=== PATIENT | female | born 1945 | race Caucasian/White ===

== ENCOUNTER → 2020-01-18 11:09 | Outpatient (BNVA) | payer MEDICARE, OTHER, SELFPAY | PROVIDERS: Family Provider Family Medicine; PCP Family Medicine; Referring Provider Family Medicine; Visit Provider Internal Medicine Rheumatology | DX: M81.0 Age-related osteoporosis without current pathological fracture (principal); Z79.899 Other long term (current) drug therapy; I10 Essential (primary) hypertension | CPT/HCPCS: 36415; 80076; 82310; 82565; 83970; 84439; 84443; 85025; 99204 ==

== ENCOUNTER → 2020-01-18 13:29 | Outpatient (BNVA) | payer MEDICARE, OTHER, SELFPAY | PROVIDERS: Family Provider Family Medicine; PCP Family Medicine; Referring Provider Family Medicine; Visit Provider Internal Medicine Rheumatology | DX: Z79.899 Other long term (current) drug therapy (principal); M81.0 Age-related osteoporosis without current pathological fracture; I10 Essential (primary) hypertension | CPT/HCPCS: 85025 ==

== ENCOUNTER 2020-06-21 14:44 | Outpatient (CLI) | payer MEDICARE, OTHER, SELFPAY ==
--- NOTE | 2020-06-21 14:49 | MM_ITS ---
WS: [id number] BILATERAL SCREENING DIGITAL MAMMOGRAM WITH CAD HISTORY: SCREENING COMPARISON: 03/03/2019, 01/30/2018 Bilateral CC and MLO views submitted. Computer aided detection analyzed. Breast composition: The breasts are extremely dense, which lowers the sensitivity of mammography. No suspicious masses, microcalcifications or architectural distortion. Scattered asymmetries in each violette ast. Biopsy clip upper outer quadrant of the RIGHT breast. MM/[id number] IMPRESSION: BI-RADS: 2-Benign FOLLOW UP: 1 Year Follow-up
== END 2020-06-21 14:45 | disposition home or self-care (01) ==
LOC: RADSHAW 14:48
PROVIDERS: PCP Family Medicine; Visit Provider Family Medicine
DX: Z12.31 Encounter for screening mammogram for malignant neoplasm of breast (principal)
CPT/HCPCS: 77067

== ENCOUNTER → 2021-03-20 08:04 | Outpatient (BNVA) | payer MEDICARE, OTHER, SELFPAY | PROVIDERS: PCP Family Medicine; Visit Provider Urology | DX: N39.0 Urinary tract infection, site not specified (principal) | CPT/HCPCS: 81003 ==

== ENCOUNTER 2021-11-06 09:15 | Outpatient (CLI) | payer MEDICARE, OTHER, SELFPAY ==
--- NOTE | 2021-11-06 09:20 | MM_ITS ---
WS: [id number] BILATERAL DIGITAL SCREENING MAMMOGRAPHY WITH CAD CLINICAL INFORMATION: SCREENING HISTORY: Screening mammogram. No current complaints. COMPARISON: June 21, 2020 TECHNIQUE: Bilateral CC and MLO views. FINDINGS: The breasts are composed of heterogeneous fibroglandular density tissue, which can limit the detectio n of small underlying mass lesions. Stereotactic biopsy clip right breast. A few punctate calcificati ons. No suspicious mass, asymmetry, calcifications, or architectural distortion. No evidence of malig mau. MM/[place] [id number] IMPRESSION: BI-RADS: 2-Benign FOLLOW UP: 1 Year Follow-up Recommend return to annual screening mammography.
== END 2021-11-06 09:16 | disposition home or self-care (01) ==
LOC: RADSHAW 09:17
PROVIDERS: PCP Family Medicine; Visit Provider Family Medicine
DX: Z12.31 Encounter for screening mammogram for malignant neoplasm of breast (principal)
CPT/HCPCS: 77067

== ENCOUNTER → 2021-11-22 08:15 | Outpatient (BNVA) | payer MEDICARE, OTHER, SELFPAY | PROVIDERS: PCP Family Medicine; Visit Provider Family Medicine | DX: Z01.812 Encounter for preprocedural laboratory examination (principal); Z20.822 Contact with and (suspected) exposure to COVID-19 | CPT/HCPCS: 87635 ==

== ENCOUNTER 2021-11-28 11:05 | Outpatient (CLI) | payer MEDICARE, OTHER, SELFPAY ==
--- NOTE | 2021-11-28 13:39 | PFTS_ITS ---
Date of Study:11/28/21 Date of Dictation: MECHANICS: Forced vital capacity (FVC) is normal. Forced expiratory volume in one second (FEV1) is normal. FEV1/FVC is normal. FLOW VOLUME LOOP: Normal. LUNG VOLUMES: Total lung capacity (TLC) is normal. Residual volume (RV) is normal. DIFFUSING CAPACITY FOR CARBON MONOXIDE: Mildly reduced. INTERPRETATION: The prebronchodilator spirometry is normal. No postbronchodilator spirometry was performed. Lung volumes are normal. Gas exchange (DLCO) is mildly reduced. MTDD
== END 2021-11-28 11:06 | disposition home or self-care (01) ==
LOC: RT 11:07
PROVIDERS: PCP Family Medicine; Visit Provider Family Medicine
DX: R05.3 Chronic cough (principal)
CPT/HCPCS: 94010; 94726; 94729

== ENCOUNTER 2022-01-30 09:57 | Outpatient (CLI) | payer MEDICARE, OTHER, SELFPAY ==
--- NOTE | 2022-01-30 10:13 | XR_ITS ---
WS: [id number] SCREENING DEXA SCAN [facility] CLINICAL INFORMATION: OSTEOPOROSIS COMPARISON: FINDINGS: The L1-L4 bone mineral density measures 0.780 g/cm2. This corresponds to a T score score of -3.3 and Z score of -1.7. Left femoral neck bone mineral density measures 0.728 g/cm2. This corresponds to a T score of -2.2 an d Z score of -0.6. Right femoral neck bone mineral density measures 0.764 g/cm2. This corresponds to a T score -1.9of an d Z score of -0.3. Mean femoral neck bone mineral density measures 0.746 g/cm2. This corresponds to a T score of -2.1 an d Z score of -0.4. XR/XR DEXA axial skeleton* [id number] IMPRESSION: Osteoporosis lumbar spine. Osteopenia femoral necks. Patient's FRAX calculated 10 year probability for major osteoporotic fracture i s 27.7 % and osteoporotic hip fracture is 17.1%.
== END 2022-01-30 09:58 | disposition home or self-care (01) ==
LOC: RAD 10:03
PROVIDERS: PCP Family Medicine; Visit Provider Family Medicine
DX: M81.0 Age-related osteoporosis without current pathological fracture (principal); M85.88 Other specified disorders of bone density and structure, other site
CPT/HCPCS: 77080

== ENCOUNTER 2022-07-02 11:40 | Observation (INO) | payer MEDICARE, OTHER, SELFPAY ==
[2022-07-02] VITALS (10 sets, daily range): BP systolic 122–158; BP diastolic 57–80; PULSE 46–54; RESP 14–18; TEMP 36.5–36.6; O2SAT 98–100; BMI 24.9
--- NOTE | 2022-07-02 11:56 | ECG_ITS ---
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 Measurements Intervals [place] Rate: 54 P: 84 LA: 181 QRS: 59 QRSD: 90 T: 16 QT: 464 QTc: 440 Interpretive Statements SINUS BRADYCARDIA WITH OCCASIONAL junctional PREMATURE COMPLEXES MODERATE ST DEPRESSION [0.05+ mV ST DEPRESSION] Compared to ECG 01/31/2017 17:02:03 Ventricular premature complex(es) now present ST (T wave) deviation now present Sinus arrhythmia no longer present T-wave abnormality no longer present Electronically Signed On 07-03-2022 7:05:46 CDT by Abrahan Stafford M.D. [id number] f
--- NOTE | 2022-07-02 12:02 | ECG_ITS ---
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 Measurements Intervals [place] Rate: 49 P: 79 [place]: 179 QRS: 49 QRSD: 102 T: -3 QT: 476 QTc: 430 Interpretive Statements SINUS BRADYCARDIA MODERATE ST DEPRESSION [0.05+ mV ST DEPRESSION] Compared to ECG 01/31/2017 17:02:03 ST (T wave) deviation now present Sinus arrhythmia no longer present T-wave abnormality no longer present Electronically Signed On 07-03-2022 7:08:00 CDT by Abrahan Stafford M.D. [email or web address].Ziptr/store/OM/[id number]/[id number]
--- NOTE | 2022-07-02 12:02 | XRR_ITS ---
PROCEDURE INFORMATION: Exam: XR Chest Exam date and time: 07/02/2022 12:13 PM Age: 77 years old Clinical indication: Shortness of breath; Additional info: Lightheadedness TECHNIQUE: Imaging protocol: Radiologic exam of the chest. Views: 1 view. COMPARISON: CR Chest 1 [place] [id number] 01/31/2017 2:29 PM FINDINGS: Lungs: Unremarkable. No consolidation. Pleural spaces: Unremarkable. No pleural effusion. No pneumothorax. Heart/Mediastinum: There is a Marysol carinal calcified lymph node stable since prior Bones/joints: Unremarkable. XR/XR chest 1V portable [id number] IMPRESSION: 1. No acute findings. 2. Calcified lymph node Marysol carinal region
--- NOTE | 2022-07-02 12:08 | ECG_ITS ---
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 Measurements Intervals [place] Rate: 51 P: 78 [place]: 174 QRS: 70 QRSD: 92 T: 42 QT: 453 QTc: 417 Interpretive Statements SINUS BRADYCARDIA Small Q waves present leads V5 and V6 which are new with poor R wave progression. Compared to ECG 07/02/2022 11:56:30 junctional premature complex(es) no longer present ST (T wave) deviation no longer present Electronically Signed On 07-03-2022 7:07:36 CDT by Abrahan Stafford M.D. [email or web address] Balloon SecuritySplitSecndtrihealth [facility].NiftyThrifty/store/NU/[id number] f
--- NOTE | 2022-07-02 12:10 | ECG_ITS ---
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 Measurements Intervals [place] Rate: 51 P: 89 [place]: 190 QRS: 73 QRSD: 83 T: 43 QT: 463 QTc: 430 Interpretive Statements SINUS BRADYCARDIA WITH OCCASIONAL VENTRICULAR PREMATURE COMPLEXES MODERATE ST DEPRESSION [0.05+ mV ST DEPRESSION] Compared to ECG 07/02/2022 12:08:16 Ventricular premature complex(es) now present ST (T wave) deviation now present Myocardial infarct finding no longer present Electronically Signed On 07-03-2022 7:07:47 CDT by Abrahan Stafford M.D. [email or web address].Angel Eye Camera SystemsHelicommmain [facility].DoseMe/store/NU/[id number] f
--- NOTE | 2022-07-02 12:14 | USCV_ITS ---
Annette Avila Age: 77 Gender: F : 1945 Exam Date: 07/02/2022 12:31 Ordering Phys: Alcides Francis MD Technologist: Piyush [place] Exam Location: [facility] [place] Indication: limited for ejection fraction BP: 123 / 70 HR: 52 Rhythm: Sinus Technical Quality: Adequate MEASUREMENTS (Male / Female) Normal Values 2D ECHO LV Diastolic Diameter PLAX 4.6 cm 4.2 - 5.9 / 3.9 - 5.3 cm LV Systolic Diameter PLAX 2.4 cm IVS Diastolic Thickness 0.8 cm 0.6 - 1.0 / 0.6 - 0.9 cm IVS Systolic Thickness 1.2 cm LVPW Diastolic Thickness 0.8 cm 0.6 - 1.0 / 0.6 - 0.9 cm LVPW Systolic Thickness 1.0 cm LVOT Diameter 2.0 cm LV Ejection Fraction 2D Teich 69.7 % LA Diameter 3.9 cm IVC Diameter 1.3 cm M-MODE Aortic Annulus Diameter 2.8 cm LA Ao Ratio MM 1.6 MV E Point Septal Separation 0.8 cm FINDINGS Left Ventricle Normal left ventricular size and systolic function, EF 69% . No regional wall motion abnormalities. Right Ventricle Normal right ventricular size and systolic function. Right Atrium Normal right atrial size. Left Atrium Mildly increased left atrial size. Mitral Valve Thickened mitral valve. Aortic Valve Thickened aortic valve. Tricuspid Valve No gross abnormalities noted Pulmonic Valve No gross abnormalities noted Pericardium No pericardial effusion. Aorta Normal aortic annulus size. IVC Normal inferior vena cava. CONCLUSIONS Normal left ventricular size and systolic function, EF 69% . No regional wall motion abnormalities. Mildly increased left atrial size. Thickened aortic and mitral valves. There is no pericardial effusion. There are no intracardiac masses. Compared to the study from 03/26/2017, there may not be a significant change Dr Mayra Meek MD [facility] (Electronically Signed) Final Date: 02 July 2022 18:39 S
--- NOTE | 2022-07-02 12:19 | ED_ITS ---
HPI - General Adult General: Chief complaint: Weakness Stated complaint: dizzy, weakness, nausea Time Seen by Provider: 07/02/22 12:02 History of Present Illness: Patient is a 77-year-old female with history of hypertension, depression presenting to the emergency room for evaluation of lightheadedness, nausea and chest pressure since 6 AM this morning. Shortly after waking up, patient has had chest heaviness, lightheadedness, room spinning sensation and nausea. Onset: 6am Duration:ongoing Location:home Severity:moderate Associated symptoms: Reports chest pain (+chest prssure); Deny dyspnea, nausea, rash, palpitations or vomiting Review of Systems Const: Reports: fatigue and other (+generalized weakness, light-headedness); Denies: fever(s) or chills Eyes: Denies: change in vision ENMT: Denies: mouth pain Card: Reports: chest pain (+chest prssure); Denies: palpitations Resp: Denies: dyspnea or non-productive cough GI: Denies: abdominal pain, nausea, vomiting or diarrhea : Denies: dysuria Musc: Denies: extremity pain Skin/Breast: Denies: rash or new lesions Neuro: Reports: other (+vertigo intermittent); Denies: weakness in extremities Psych: Reports: other (Normal mood) Isaiah/Lymph: Denies: easy bruising PFSH ED PFSH: Medical History Essential (primary) hypertension High risk for fracture due to osteoporosis by DEXA scan High risk medication use Osteoporosis Recurrent UTI Originally presented with chronic cystitis. Resolved after prolonged antibiotics. Placed on self treatment for recurrent acute cystitis. Surgical History H/O splenectomy H/O: hysterectomy History of appendectomy Hx of tonsillectomy Previous back surgery Family History Mother , at age 92 Heart attack Father , at age 74 MVA (motor vehicle accident) Other CAD (coronary artery disease) Cancer Hypertension Denies family history of Rheumatoid arthritis Diabetes Lupus Stroke Social History Smoking and tobacco status: never smoked Alcohol intake: current Alcohol intake frequency: holidays/special occasions only Marital status: Current occupational status: retired History of recent travel: No ([id number]) Physical Exam Const: COMMON NORMALS: alert HENMT: COMMON NORMALS: atraumatic HEAD & SCALP: atraumatic MOUTH: moist mucous membranes not abnormal Eye: COMMON NORMALS: EOMs intact bilaterally and conjunctivae normal CONJUNCTIVA: Yes conjunctivae normal Neck/C-Spine: COMMON NORMALS: full ROM and supple Resp: COMMON NORMALS: normal respiratory effort and clear to auscultation bilaterally AUSCULTATION: clear to auscultation bilaterally Cardio: COMMON NORMALS: regular rate RATE: regular rate GI: COMMON NORMALS: Soft to palpation and non-tender PALPATION: Yes Soft to palpation OTHER: No focal TTP. NO guarding rebound, guarding, rigidity. No CVA tenderness to percussion. Neg Beasley/Neg McBurney's point tenderness, no suprabupic tenderness to palpation. Extremity: COMMON NORMALS: full ROM Neuro: SENSORIUM/ORIENTATION: Yes alert MOTOR EXAM: No Abnormal motor strength present and Other motor observations present (no focal motor deficits) Psych: COMMON NORMALS: speech normal SPEECH: Yes normal speech MOOD & AFFECT: Yes euthymic mood Course Vital Signs: Vital signs: Vital Signs Temperature 97.8 F 07/02/22 11:47 Pulse Rate 54 L 07/02/22 17:11 Respiratory Rate 14 07/02/22 17:11 Blood Pressure 142/57 07/02/22 17:11 Pulse Oximetry 100 07/02/22 17:11 Oxygen Delivery Me thod 07/02/22 17:11 MDM - General Adult Medical Decision Making 77-year-old female with a history of hypertension, depression presenting to the emergency room with nausea/vomiting, generalized weakness, chest pressure and vertigo-like sensation since 6 AM this morning. On exam, patient is hemodynamically stable appears to be mild distress. Initial EKG showed tall R wave with ST depression in V3 concerning for posterior infarction. No prior EKG for comparison. Discussed case at 12:[address] Stafford who evaluated patient at bedside. Patient received aspirin, nitro, Lovenox in the ED. US did not show any posterior wall motion abnormality. Given ongoing vertigo and intermittent lightheadedness, patient will need to be admitted to hospital for further evaluation. CT of the head negative for any acute finding. Disposition: admission Lab Data : 07/02/22 12:24 07/02/22 12:24 Radiology Impressions Chest X-Ray 07/02/22 12:02 IMPRESSION: 1. No acute findings. 2. Calcified lymph node Marysol carinal region Head CT 07/02/22 15:47 IMPRESSION: No acute intracranial abnormality. Laboratory Results WBC 7.5 10^3/uL (4.0-10.0) 07/02/22 12:24 RBC 4.27 10^6/uL (4.1-5.3) 07/02/22 12:24 Hgb 13.6 g/dL (11.5-15.3) 07/02/22 12:24 Hct 41.6 % (37.0-47.0) 07/02/22 12:24 MCV 97.4 fl (81-99) 07/02/22 12:24 MCH 31.9 pg (28.0-34.0) 07/02/22 12:24 MCHC 32.7 g/dL (30.0-36.0) 07/02/22 12:24 RDW 14.8 % (12.1-15.1) 07/02/22 12:24 Plt Count 327 10^3/cmm (130-400) 07/02/22 12:24 MPV 12.1 fL (7.4-10.4) H 07/02/22 12:24 Neut % (Auto) 49.8 % 07/02/22 12:24 Lymph % (Auto) 40.3 % 07/02/22 12:24 Heard % (Auto) 7.9 % 07/02/22 12:24 Eos % (Auto) 0.9 % 07/02/22 12:24 Baso % (Auto) 0.8 % 07/02/22 12:24 Neut # (Auto) 3.71 10^3/uL (1.8-7.7) 07/02/22 12:24 Lymph # (Auto) 3.0 10^3/uL (0.8-4.8) 07/02/22 12:24 Heard # (Auto) 0.6 10^3/uL (0.2-0.9) 07/02/22 12:24 Eos # (Auto) 0.1 10^3/uL (0.0-0.8) 07/02/22 12:24 Baso # (Auto) 0.1 10^3/uL (0.0-0.1) 07/02/22 12:24 Nucleated RBC % (auto) 0 % 07/02/22 12:24 Nucleated RBCs # 0.0 /100WBC 07/02/22 12:24 PT 13.00 SECONDS (12.1-14.9) 07/02/22 12:24 INR 0.95 (0.8-1.2) 07/02/22 12:24 APTT 26.9 SECONDS (23.9-36.7) 07/02/22 12:24 Sodium 139 mmol/L (136-145) 07/02/22 12:24 Potassium 4.1 mmol/L (3.5-5.1) 07/02/22 12:24 Chloride 101 mmol/L (98-107) 07/02/22 12:24 Carbon Dioxide 27 mmol/L (22-29) 07/02/22 12:24 Anion Gap 15.1 (5-19) 07/02/22 12:24 BUN 18 mg/dL (8-23) 07/02/22 12:24 Creatinine 0.6 mg/dL (0.5-0.9) 07/02/22 12:24 GFR Calculation Not Reportable 07/02/22 12:24 Glucose 99 mg/dL (65-115) 07/02/22 12:24 Calculated Osmolality 290 mOsm/kg (285-295) 07/02/22 12:24 Calcium 9.6 mg/dL (8.5-10.5) 07/02/22 12:24 Total Bilirubin 0.3 mg/dL (0.15-1.2) 07/02/22 12:24 AST 19 U/L (0-32) 07/02/22 12:24 ALT 14 U/L (0-33) 07/02/22 12:24 Alkaline Phosphatase 80 IU/L (35-105) 07/02/22 12:24 Troponin T Baseline 7 ng/L (0-10) 07/02/22 12:24 Troponin T 120 Minute 6.36 ng/L (0-10) 07/02/22 13:50 Delta Troponin T -0.64 ABS# (0-10) L 07/02/22 13:50 Total Protein 6.9 g/dL (6.6-8.7) 07/02/22 12:24 Albumin 4.3 g/dL (3.5-5.2) 07/02/22 12:24 Globulin 2.6 g/dL (1.3-4.6) 07/02/22 12:24 Lipase 35 U/L (13-60) 07/02/22 12:24 Urine Color Straw (Yellow) 07/02/22 16:20 Urine Appearance Clear (CLEAR) 07/02/22 16:20 Urine pH 8 (5-7) H 07/02/22 16:20 Ur Specific [place] 1.020 (1.005-1.030) 07/02/22 16:20 Urine Protein Neg (Negative) 07/02/22 16:20 Urine Glucose (UA) Norm (Normal) 07/02/22 16:20 Urine Ketones Negative (Negative) 07/02/22 16:20 Urine Blood Neg (Negative) 07/02/22 16:20 Urine Nitrate Negative (Negative) 07/02/22 16:20 Urine Bilirubin Neg (Negative) 07/02/22 16:20 Urine Urobilinogen Norm mg/dL (Negative) 07/02/22 16:20 Ur Leukocyte Esterase 2+ (Negative) H 07/02/22 16:20 Urine RBC None /hpf (0-2) 07/02/22 16:20 Urine WBC 25-40 /hpf (0-5) H 07/02/22 16:20 Ur Squamous Epith Cells Rare /hpf (0-5) 07/02/22 16:20 Ur Transition Epith Cell 0-4 /hpf 07/02/22 16:20 Amorphous Sediment Not Reportable 07/02/22 16:20 Urine Bacteria Trace /hpf (NONE) 07/02/22 16:20 Urine Mucus 1+ /hpf 07/02/22 16:20 SARS-CoV-2 Ag (Rapid) Negative (Negative) 07/02/22 13:40 Imaging Data Other Imaging: Radiologist's impression: [address] [place] [address] CT Scan Report Signed Patient: Annette Avila Unit #: [id number] : 1945 Age/Sex: 77 / F ADM Date: 07/02/22 Loc: ER Room/Bed: Attending Dr: Ordering Provider/Ordering MD: Alcides Francis MD Date of Service: 07/02/22 Procedure(s): CT head wo con* [id number] Accession Number(s): [id number] Report Number: [id number] PROCEDURE INFORMATION: Exam: CT Head Without Contrast Exam date and time: 07/02/2022 4:33 PM Age: 77 years old Clinical indication: Dizziness and syncope and collapse; Prior surgery; Surgery type: Cataract surgery; Additional info: Light-headedness, low heart rate TECHNIQUE: Imaging protocol: Computed tomography of the head without contrast. Radiation optimization: All CT scans at this facility use at least one of these dose optimization techniques: automated exposure control; mA and/or kV adjustment per patient size (includes targeted exams where dose is matched to clinical indication); or iterative reconstruction. COMPARISON: CT head wo con* [id number] 01/31/2017 2:57 PM RADIATION DOSE METRICS: Total DLP (mGy-cm): 1017.18 FINDINGS: Brain: Normal. No hemorrhage. Unremarkable white matter. No mass effect. Cerebral ventricles: No ventriculomegaly. Paranasal sinuses: Visualized sinuses are unremarkable. No fluid levels. Mastoid air cells: Visualized mastoid air cells are well aerated. Bones/joints: Unremarkable. No acute fracture. Soft tissues: Unremarkable. CT/CT head wo con* [id number] IMPRESSION: No acute intracranial abnormality. ? Dictated By: Cristo Erickson Signed By: Cristo Erickson Signed Date/Time: 07/02/22 170 DD/ [address] [address] XRay Report Signed Patient: Annette Avila Unit #: [id number] : 1945 Age/Sex: 77 / F ADM Date: 07/02/22 Loc: ER Room/Bed: Attending Dr: Ordering Provider/Ordering MD: Alcides Francis MD Date of Service: 07/02/22 Procedure(s): XR chest 1V portable [id number] Accession Number(s): [id number] Report Number: [id number] PROCEDURE INFORMATION: Exam: XR Chest Exam date and time: 07/02/2022 12:13 PM Age: 77 years old Clinical indication: Shortness of breath; Additional info: Lightheadedness TECHNIQUE: Imaging protocol: Radiologic exam of the chest. Views: 1 view. COMPARISON: CR Chest 1 [place] [id number] 01/31/2017 2:29 PM FINDINGS: Lungs: Unremarkable. No consolidation. Pleural spaces: Unremarkable. No pleural effusion. No pneumothorax. Heart/Mediastinum: There is a Amrysol carinal calcified lymph node stable since prior Bones/joints: Unremarkable. XR/XR chest 1V portable [id number] IMPRESSION: 1. No acute findings. 2. Calcified lymph node Marysol carinal region ? Dictated By: Cristo Erickson Signed By: Cristo Erickson Signed Date/Time: 07/02/22 1259 DD/ 1213 Discharge Plan Discharge Patient Disposition: Admitted As Inpatient Clinical Impression: Vertigo, Light headedness Condition: Stable Coding Level of Care Code ED Human Resource Manager for Chg Fwd Exam Comprehensive
[2022-07-02] MEDS: aspirin 325 mg Tablet PO (12:20)
[2022-07-02] MEDS: enoxaparin 80 mg/0.8 mL Syringe 70 MG SUBCUT (12:21)
[2022-07-02] MEDS: clopidogrel 300 mg Tablet 600 MG PO (12:47)
--- NOTE | 2022-07-02 12:47 | PC.PHAR ---
PT STATES SHE TAKES CARE OF HER OWN MEDICATIONS-EXT MED HISTORY SHOWS METOPROLOL SUCCINATE ER 50MG DAILY LAST FILLED 02/13/22 90D/S-PT STATES SHE HAD TO TAKE THE METOPROLOL BECAUSE THE PHARMACY COULDNT GET THE ATENOLOL 50MG QAM PT STATES SHE IS GOING TO GO BACK TO THE ATENOLOL LAST FILLED 06/06/22 90D/S WHEN SHE FINISHES THE METOPROLOL-NOTES ARE MADE IN THE PHARMACY COMMENTS
[2022-07-02 13:01] LABS: INR 0.95 (0.8-1.2); Partial Thromboplastin Time 26.9 SECONDS (23.9-36.7)
[2022-07-02 13:24] LABS: Troponin(5th) Baseline 7 ng/L (0-10)
[2022-07-02 13:35] LABS: Alanine Aminotransferase 14 U/L (0-33); Albumin Level 4.3 g/dL (3.5-5.2); Alkaline Phosphatase 80 IU/L (35-105); Aspartate Amino Transferase 19 U/L (0-32); Basophils # 0.1 10^3/uL (0.0-0.1); Basophils % 0.8 %; Blood Urea Nitrogen 18 mg/dL (8-23); Calcium 9.6 mg/dL (8.5-10.5); Carbon Dioxide 27 mmol/L (22-29); Chloride 101 mmol/L (98-107); Eosinophils # 0.1 10^3/uL (0.0-0.8); Eosinophils % 0.9 %; Globulin 2.6 g/dL (1.3-4.6); Glucose 99 mg/dL (65-115); Hematocrit 41.6 % (37.0-47.0); Hemoglobin 13.6 g/dL (11.5-15.3); Lipase 35 U/L (13-60); Lymphocytes % 40.3 %; Mean Corpuscular HGB Conc 32.7 g/dL (30.0-36.0); Mean Corpuscular Hemoglobin 31.9 pg (28.0-34.0); Mean Corpuscular Volume 97.4 fl (81-99); Mean Platelet Volume 12.1 fL (7.4-10.4); Monocytes # 0.6 10^3/uL (0.2-0.9); Monocytes % 7.9 %; Neutrophils # 3.71 10^3/uL (1.8-7.7); Neutrophils % 49.8 %; Nucleated Red Blood Cells % 0 %; Osmolality Calculated 290 mOsm/kg (285-295); Platelet Count 327 10^3/cmm (130-400); Red Blood Count 4.27 10^6/uL (4.1-5.3); Red Cell Distribution Width 14.8 % (12.1-15.1); Sodium 139 mmol/L (136-145); Total Bilirubin 0.3 mg/dL (0.15-1.2); Total Protein 6.9 g/dL (6.6-8.7); White Blood Count 7.5 10^3/uL (4.0-10.0)
--- NOTE | 2022-07-02 14:02 | ECG_ITS ---
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 Measurements Intervals [place] Rate: 48 P: 80 NV: 186 QRS: 44 QRSD: 98 T: -4 QT: 464 QTc: 418 Interpretive Statements SINUS BRADYCARDIA MODERATE ST DEPRESSION [0.05+ mV ST DEPRESSION] Compared to ECG 07/02/2022 12:43:28 No significant changes Electronically Signed On 07-03-2022 21:20:43 CDT by Mayra Meek M.D. [email or web address] memorial community hospitalCourion Corporationthe christ hospital.extraTKT/store/OM/[id number]/[id number]
--- NOTE | 2022-07-02 14:06 | ECG_ITS ---
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 Measurements Intervals [place] Rate: 48 P: -8 VT: 188 QRS: 9 QRSD: 100 T: 63 QT: 463 QTc: 417 Interpretive Statements SINUS BRADYCARDIA WITH OCCASIONAL SUPRAVENTRICULAR PREMATURE COMPLEXES MODERATE ST DEPRESSION [0.05+ mV ST DEPRESSION] Compared to ECG 07/02/2022 13:08:59 No significant changes Electronically Signed On 07-03-2022 21:21:29 CDT by Mayra Meek M.D. [email or web address] [employer].YoungCurrentperry county general hospitalHealth Innovation Technologiesselect medical specialty hospital [facility].Endo Tools Therapeutics/store/OM/[id number]/ecg/[id number]
[2022-07-02 14:29] LABS: SARS Covid-2 Antigen Negative (Negative)
[2022-07-02 14:32] LABS: Anion Gap 15.1 (5-19); Potassium 4.1 mmol/L (3.5-5.1)
[2022-07-02 15:13] LABS: Troponin 5 2HR 6.36 ng/L (0-10)
[2022-07-02 15:22] LABS: Troponin 5 2HR Delta -0.64 ABS# (0-10)
--- NOTE | 2022-07-02 15:47 | CTR_ITS ---
PROCEDURE INFORMATION: Exam: CT Head Without Contrast Exam date and time: 07/02/2022 4:33 PM Age: 77 years old Clinical indication: Dizziness and syncope and collapse; Prior surgery; Surgery type: Cataract surgery; Additional info: Light-headedness, low heart rate TECHNIQUE: Imaging protocol: Computed tomography of the head without contrast. Radiation optimization: All CT scans at this facility use at least one of these dose optimization techniques: automated exposure control; mA and/or kV adjustment per patient size (includes targeted exams where dose is matched to clinical indication); or iterative reconstruction. COMPARISON: CT head wo con* [id number] 01/31/2017 2:57 PM RADIATION DOSE METRICS: Total DLP (mGy-cm): 1017.18 FINDINGS: Brain: Normal. No hemorrhage. Unremarkable white matter. No mass effect. Cerebral ventricles: No ventriculomegaly. Paranasal sinuses: Visualized sinuses are unremarkable. No fluid levels. Mastoid air cells: Visualized mastoid air cells are well aerated. Bones/joints: Unremarkable. No acute fracture. Soft tissues: Unremarkable. CT/CT head wo con* [id number] IMPRESSION: No acute intracranial abnormality.
[2022-07-02] MEDS: sodium chloride 0.9% 1,000 ML 999 ML IV (15:55)
[2022-07-02 17:40] LABS: Bilirubin Urine Neg (Negative); Blood Urine Neg (Negative); Glucose Urine UA Norm (Normal); Ketones Urine Negative (Negative); Nitrate Urine Negative (Negative); Protein Urine Neg (Negative); Urine Appearance Clear (CLEAR); Urine Color Straw (Yellow); pH Urine 8 (5-7)
[2022-07-02 17:41] LABS: Add Urine Microscopic? YES; Bacteria Urine TRACE /hpf; Leukocyte Esterase Urine 2+ (Negative); Mucus Urine 1+ /hpf; Squamous Epithelial Cell Urine RARE /hpf (0-5); Transitional Epi Cells Urine 0-4 /hpf; Urobilinogen Urine Norm (Negative); WBC Urine 25-40 /hpf (0-5)
--- NOTE | 2022-07-02 20:10 | PM.HP ---
Providers/Chief Complaint Admitting Physician: Carlos Garcia Primary Care Provider: Elvira Urbina MD Chief Complaint: dizzy, weakness, nausea History of Present Illness Pleasant 77-year-old lady presented with episodes of vertigo since this morning to the point that she was having difficulty walking. She had associated nausea. She has been having some mild on and off headaches which are not new. Denies photophobia. She has mild chronic cough. She has chronically abnormal EKG for which she had a stress test 2 years ago which was unremarkable she tells me. Here with concern of possibly posterior ND EKG was discussed with cardiology by ER physician. Troponin has been normal x2. Echocardiogram limited views unremarkable. She was not thought to be having active cardiac ischemia. She denies ever having vertigo before. She denies any ear complaints, no ear pain or discharge, no tinnitus, no hearing loss. She denies that vertigo is triggered by looking in a direction or turning. Denies having history of ND or CVA. Has history of hypertension. Her mother had a stroke. Noted abnormal UA, but she denies any urinary symptoms. History of chronic cystitis in the past. Review of Systems Const: Denies: fever(s), chills, body aches or malaise Eyes: Denies: change in vision, eye discomfort or eye redness ENMT: Denies: throat pain, oral sores or ear or mastoid pain Card: Denies: chest pain, edema, pre-syncope or dyspnea on exertion Resp: Denies: dyspnea, productive cough, change in phlegm color or hemoptysis GI: Reports: nausea; Denies: abdominal pain, vomiting, diarrhea, constipation, hematochezia or melena : Denies: flank pain, urinary frequency or hematuria Musc: Reports: other (Has some chronic muscle stiffness for which she visited with her primary pr); Denies: back pain, joint swelling or joint redness Skin/Breast: Denies: rash or new lesions Neuro: Reports: difficulty walking and vertigo; Denies: headache(s), numbness in extremities, weakness in extremities, confusion or seizure-like activity Endo: Denies: polyuria or polydipsia Isaiah/Lymph: Denies: easy bleeding or tender lymph nodes All/Imm: Denies: urticaria or tongue swelling Medications/Allergies Home Medications Medication Instructions Recorded Confirmed Last Taken Type aspirin 81 mg tablet,delayed 81 mg PO QAM 01/18/20 07/02/22 07/01/22 History release (Adult Low Dose Aspirin) escitalopram oxalate 10 mg tablet 10 mg PO BEDTIME 01/18/20 07/02/22 07/01/22 History (Lexapro) lisinopril 10 1 tab PO QAM 01/18/20 07/02/22 07/01/22 History mg-hydrochlorothiazide 12.5 mg tablet metoprolol succinate 50 mg 50 mg PO QAM 01/18/20 07/02/22 07/01/22 History tablet,extended release 24 hr atenolol 50 mg tablet 50 mg PO DAILY 07/02/22 07/02/22 Unknown History calcium carbonate 600 mg-vitamin 1 tab PO QAM 07/02/22 07/02/22 07/01/22 History D3 5 mcg (200 unit) tablet cholecalciferol (vitamin D3) 25 25 - 125 mcg PO QAM 07/02/22 07/02/22 07/01/22 History mcg (1,000 unit) capsule (Vitamin D3) omeprazole 40 mg capsule,delayed 40 mg PO BEDTIME 07/02/22 07/02/22 07/01/22 History release sulfamethoxazole 800 1 tab PO BID PRN UTI 07/02/22 07/02/22 Unknown History mg-trimethoprim 160 mg tablet Allergies Allergy/AdvReac Type Severity Reaction Status Date / Time tizanidine Allergy Intermediate hard to Verified 07/02/22 12:31 breathe and went to ER PFSH Acute PFSH: Medical History Essential (primary) hypertension High risk for fracture due to osteoporosis by DEXA scan High risk medication use Osteoporosis Recurrent UTI Originally presented with chronic cystitis. Resolved after prolonged antibiotics. Placed on self treatment for recurrent acute cystitis. Surgical History H/O splenectomy H/O: hysterectomy History of appendectomy Hx of tonsillectomy Previous back surgery Family History Mother , at age 92 Heart attack Father , at age 74 MVA (motor vehicle accident) Other CAD (coronary artery disease) Cancer Hypertension Denies family history of Rheumatoid arthritis Diabetes Lupus Stroke Social History Smoking and tobacco status: never smoked Alcohol intake: current Alcohol intake frequency: holidays/special occasions only Marital status: Current occupational status: retired History of recent travel: No ([id number]) Vitals/I&O/Wt Last Vital Signs Temp 97.8 F 07/02/22 11:47 Pulse 52 L 07/02/22 19:49 Resp 18 07/02/22 19:49 BP 135/80 07/02/22 19:49 Pulse Ox 98 07/02/22 19:49 O2 Del Method 07/02/22 19:25 Weight last 48 hrs Weight 65.771 kg Physical Exam Const: COMMON NORMALS: patient oriented x3 and alert GENERAL APPEARANCE: cooperative ORIENTATION/CONSCIOUSNESS: Yes awake HENMT: COMMON NORMALS: oropharynx normal Neck/C-Spine: COMMON NORMALS: no JVD Resp: COMMON NORMALS: normal respiratory effort and clear to auscultation bilaterally AUSCULTATION: clear to auscultation bilaterally Cardio: COMMON NORMALS: no JVD, regular rhythm, S1 normal heart sound present, S2 normal heart sound present and No murmurs present (Cardio) RHYTHM: regular rhythm HEART SOUNDS: S1 normal heart sound present and S2 normal heart sound present GI: COMMON NORMALS: Normal to inspection, nondistended, normoactive bowel sounds present, Soft to palpation and non-tender PALPATION: Yes Soft to palpation Extremity: COMMON NORMALS: no joint enlargement and no pedal edema Neuro: COMMON NORMALS: patient oriented x3 and moves all extremities SENSORIUM/ORIENTATION: Yes alert COORDINATION/BALANCE: wqphtz-in-honf test normal and pueb-af-ceel test normal Skin: COMMON NORMALS: no rashes or lesions noted GENERAL SKIN EXAM: no rashes or lesions noted Data : 07/02/22 12:24 07/02/22 12:24 A&P Assessment and plan (1) Vertigo: Due to risk factors of cardiovascular disease, assess MRI due to possibility of CVA with new onset persistent/recurrent vertigo. PT evaluation. Status: Acute (2) Recurrent UTI: History of. Status: Acute (3) Bradycardia: Sinus bradycardia in 40s-50s. Unclear if she is taking both atenolol and metoprolol. Hold beta-blockers for tonight until we can clarify. Check TSH. Status: Acute Plan Urinalysis: She denies any urinary symptoms. For now hold off on antibiotics unless this changes. Urine culture. Attestations Medical Necessity Statement*: Place in observation for assessment of vertigo, possible cva. Coding Level of Care Code Acute Machine Woodworking Sander for Barry Laney Diagnoses Vertigo R42 Recurrent UTI N39.0 Bradycardia R00.1
--- NOTE | 2022-07-02 20:11 | PC.NURSE ---
ADMIT NOTE Pt resceived to room from ER at 1950. Alert and oriented. Denies any pain or dizziness at present. Says she continues to just feel weak. funeral greeter applied. VS check done. RN to do admission assessment
[2022-07-02 20:25] LABS: Add Urine Culture? Yes
[2022-07-02 20:33] LABS: Troponin 5 6HR 9.57 ng/L (0-10)
[2022-07-02 20:36] LABS: Troponin 5 6HR Delta 2.57 ng/L (0-12)
[2022-07-02] MEDS: escitalopram 10 mg Tablet PO (22:04)
[2022-07-02] MEDS: pantoprazole DR 40 mg Tablet PO (22:05)
[2022-07-03] VITALS: BP 107/57; PULSE 50; RESP 16; TEMP 36.4; O2SAT 96
[2022-07-03 04:00] VITALS: BP 109/62; PULSE 57; RESP 16; TEMP 36.8; O2SAT 97
[2022-07-03] MEDS: aspirin 81 mg EC Tablet PO (05:21)
[2022-07-03 05:51] LABS: Basophils # 0.1 10^3/uL (0.0-0.1); Basophils % 1.2 %; Eosinophils # 0.1 10^3/uL (0.0-0.8); Eosinophils % 1.9 %; Hematocrit 36.1 % (37.0-47.0); Lymphocytes # 3.2 10^3/uL (0.8-4.8); Lymphocytes % 55.8 %; Mean Corpuscular HGB Conc 33.2 g/dL (30.0-36.0); Mean Corpuscular Hemoglobin 32.3 pg (28.0-34.0); Mean Corpuscular Volume 97.3 fl (81-99); Mean Platelet Volume 11.4 fL (7.4-10.4); Monocytes # 0.7 10^3/uL (0.2-0.9); Monocytes % 12.1 %; Neutrophils # 1.67 10^3/uL (1.8-7.7); Neutrophils % 28.8 %; Nucleated Red Blood Cells % 0 %; Platelet Count 296 10^3/cmm (130-400); Red Blood Count 3.71 10^6/uL (4.1-5.3); White Blood Count 5.8 10^3/uL (4.0-10.0)
[2022-07-03 06:00] VITALS: PULSE 44
[2022-07-03 06:12] LABS: Anion Gap 13.1 (5-19); Blood Urea Nitrogen 16 mg/dL (8-23); Calcium 8.6 mg/dL (8.5-10.5); Carbon Dioxide 26 mmol/L (22-29); Chloride 107 mmol/L (98-107); Glucose 84 mg/dL (65-115); Osmolality Calculated 294 mOsm/kg (285-295); Potassium 4.1 mmol/L (3.5-5.1); Sodium 142 mmol/L (136-145)
[2022-07-03 07:20] VITALS: BP 116/52; PULSE 52; RESP 16; TEMP 36.8; O2SAT 97
--- NOTE | 2022-07-03 09:40 | PC.CHAP ---
Pastoral Care Encounter/Spiritual Assessment Type of Contact [] Declined trim mechanic visit [] Patient/Family/Request visit [] Outpatient visit [] Follow-up visit [] Physician referral [] Code/Alert [x [] Out of room [] Palliative care [] [] Receiving care in room [] Pre-surgical visit [] Trauma [] Long length of stay [] ICU visit [] Other: Relational/Emotional Strength [x] Patient feels connected with others/family/visitors/staff [] Distress [] Loneliness/isolation [] Abandonment Spirituality of Patient [x] Person of Elizabeth x] Attends Sikhism of their Elizabeth [x] Believes in Prayer [x] Reads Bible or Sabianist materials [] There are Spiritual issues to be addressed Air Bag Curer Interventions [x] Prayer [x] Active listening [x] Non-anxious presence [x] Spiritual/emotional support [] Crisis/trauma care [] Spiritual counseling [] Bereavement support [] Provided bereavement packet [] Provided Bible/devotional materials [] Provided toy/stuffed animal, coloring book to patient or family member x] Completed spiritual assessment [] Other: Impact on Illness or Injury [] Angry [] Fearful [] Anxious [] Often cries [] Exhaustion [] Unable to work [] Unable to attend yarsani [] Unable to walk/stand [] Unable to read [] Unable to drive [] Unable to eat/drink [] Unable to sleep [] Unable to be with family [] Patient intubated [] Other: Summary patient feeling better Time spent with patient 10 min
[2022-07-03 11:12] VITALS: BP 144/73; PULSE 88; RESP 16; TEMP 36.6; O2SAT 93
--- NOTE | 2022-07-03 12:27 | P.DS_ITS ---
Discharge Providers Date of Admission: 07/02/22 17:23 Date of Discharge: July 03, 2022 Attending Provider at Admission: Carlos Garcia Attending Provider at Discharge: Carlos Garcia Primary Care Provider: Elvira Urbina MD Diagnoses at Discharge Discharge Diagnosis (1) Vertigo: Status: Acute (2) Recurrent UTI: Status: Acute Permanent problem details: Originally presented with chronic cystitis. Resolved after prolonged antibiotics. Placed on self treatment for recurrent acute cystitis. (3) Bradycardia: Status: Acute Reason for Visit Reason for Visit: dizzy, weakness, nausea Brief History: Pleasant 77-year-old lady presented with episodes of vertigo since this morning to the point that she was having difficulty walking.? She had associated nausea.? She has been having some mild on and off headaches which are not new.? Denies photophobia.? She has mild chronic cough.? She has chronically abnormal EKG for which she had a stress test 2 years ago which was unremarkable she tells me.? Here with concern of possibly posterior UT EKG was discussed with cardiology by ER physician.? Troponin has been normal x2.? Echocardiogram limi dirk views unremarkable.? She was not thought to be having active cardiac ischemia. She denies ever having vertigo before.? She denies any ear complaints, no ear pain or discharge, no tinnitus, no hearing loss. She denies that vertigo is triggered by looking in a direction or turning. Denies having history of UT or CVA.? Has history of hypertension.? Her mother had a stroke. Noted abnormal UA, but she denies any urinary symptoms.? History of chronic cystitis in the past. Hospital Course Hospital Course She did well overnight without any recurrence of symptoms vertigo, today did very well with physical therapy. Vertigo could not be triggered. She feels minimally like things are swimming little bit around her, but this is minute, and has no other symptoms. Discussed with her lower possibly of CVA as cause her symptoms. MRI has been ordered, but scheduled for tonight. As she has been feeling better she requested discharge and follow-up with MRI on outpatient basis. Continue to optimize risk factors of CVA. Monitor blood pressure closely. As noted abnormal urinalysis with 25-40 WBC, 2+ leukocyte esterase, negative nitrate, but had no urinary symptoms, so has not been started on antibiotic at this time. Urine culture had been requested, however. This is pending and will need to be followed up. Of note while in the ER was also seen to be bradycardic, heart rates in the 40s, but on rare occasion noted to drop down into the 30s for a brief moment. On the floor had gone down intermittently to lower 40s. Due to this her metoprolol dose was reduced. She is asked to monitor her heart rates at home at least twice daily, but in case of symptoms of fatigue or lightheadedness (which she stated occasionally gets but not related to the current reason for presentation), consider additional more extended cardiac monitoring. Physical Exam Narrative: accompanying her at bedside Const: COMMON NORMALS: patient oriented x3 and alert GENERAL APPEARANCE: cooperative ORIENTATION/CONSCIOUSNESS: Yes awake HENMT: COMMON NORMALS: oropharynx normal Neck/C-Spine: COMMON NORMALS: no meningeal signs and no JVD Resp: COMMON NORMALS: normal respiratory effort and clear to auscultation bilaterally AUSCULTATION: clear to auscultation bilaterally Cardio: COMMON NORMALS: no JVD, regular rhythm, S1 normal heart sound present, S2 normal heart sound present and No murmurs present (Cardio) RHYTHM: regular rhythm HEART SOUNDS: S1 normal heart sound present and S2 normal heart sound present GI: COMMON NORMALS: Normal to inspection, nondistended, normoactive bowel sounds present, Soft to palpation and non-tender PALPATION: Yes Soft to palpation Extremity: COMMON NORMALS: no joint enlargement and no pedal edema Neuro: COMMON NORMALS: patient oriented x3 and moves all extremities SENSORIUM/ORIENTATION: Yes alert MENINGEAL SIGNS: Yes no meningeal signs COORDINATION/BALANCE: [id number]-[id number] test normal and mago-jm-blqf test normal SPEECH: speech normal GAIT: Yes Normal gait present SENSORY EXAM: Yes extremities (Symmetrical) MOTOR EXAM: Pronator motor function not present COORDINATION: jbdhsz-xs-noqh test normal and hojb-pr-ompl test normal OTHER: No trouble tracking. Visual villarreal full to confrontation. Skin: COMMON NORMALS: no rashes or lesions noted GENERAL SKIN EXAM: no rashes or lesions noted Discharge Data Studies Completed and Pending Completed Studies During Hospitalization Category Date Time Status CT head wo con* [id number] Urgent Cat Scan 07/02/22 15:47 Completed XR chest 1V portable [id number] Stat Exams 07/02/22 12:02 Completed CV. echo limited [id number] Urgent Ultrasound 07/02/22 12:14 Completed Pending at discharge Category Date Time Status Basic Metabolic Panel AM LABS Lab 07/04/22 04:00 Ordered Basic Metabolic Panel AM LABS Lab 07/05/22 04:00 Ordered Complete Blood Count w/Auto AM LABS Lab 07/04/22 04:00 Ordered Complete Blood Count w/Auto AM LABS Lab 07/05/22 04:00 Ordered Urine Culture Stat Lab 07/02/22 16:20 Received MR head wo con* [id number] Routine MRI 07/03/22 20:09 Ordered Radiology Impressions Chest X-Ray 07/02/22 12:02 IMPRESSION: 1. No acute findings. 2. Calcified lymph node Marysol carinal region Head CT 07/02/22 15:47 IMPRESSION: No acute intracranial abnormality. Laboratory Results WBC 5.8 10^3/uL (4.0-10.0) 07/03/22 05:21 RBC 3.71 10^6/uL (4.1-5.3) L 07/03/22 05:21 Hgb 12.0 g/dL (11.5-15.3) 07/03/22 05:21 Hct 36.1 % (37.0-47.0) L 07/03/22 05:21 MCV 97.3 fl (81-99) 07/03/22 05:21 MCH 32.3 pg (28.0-34.0) 07/03/22 05:21 MCHC 33.2 g/dL (30.0-36.0) 07/03/22 05:21 RDW 15.0 % (12.1-15.1) 07/03/22 05:21 Plt Count 296 10^3/cmm (130-400) 07/03/22 05:21 MPV 11.4 fL (7.4-10.4) H 07/03/22 05:21 Neut % (Auto) 28.8 % 07/03/22 05:21 Lymph % (Auto) 55.8 % 07/03/22 05:21 Whitman % (Auto) 12.1 % 07/03/22 05:21 Eos % (Auto) 1.9 % 07/03/22 05:21 Baso % (Auto) 1.2 % 07/03/22 05:21 Neut # (Auto) 1.67 10^3/uL (1.8-7.7) L 07/03/22 05:21 Lymph # (Auto) 3.2 10^3/uL (0.8-4.8) 07/03/22 05:21 Whitman # (Auto) 0.7 10^3/uL (0.2-0.9) 07/03/22 05:21 Eos # (Auto) 0.1 10^3/uL (0.0-0.8) 07/03/22 05:21 Baso # (Auto) 0.1 10^3/uL (0.0-0.1) 07/03/22 05:21 Nucleated RBC % (auto) 0 % 07/03/22 05:21 Nucleated RBCs # 0.0 /100WBC 07/03/22 05:21 PT 13.00 SECONDS (12.1-14.9) 07/02/22 12:24 INR 0.95 (0.8-1.2) 07/02/22 12:24 APTT 26.9 SECONDS (23.9-36.7) 07/02/22 12:24 Sodium 142 mmol/L (136-145) 07/03/22 05:21 Potassium 4.1 mmol/L (3.5-5.1) 07/03/22 05:21 Chloride 107 mmol/L (98-107) 07/03/22 05:21 Carbon Dioxide 26 mmol/L (22-29) 07/03/22 05:21 Anion Gap 13.1 (5-19) 07/03/22 05:21 BUN 16 mg/dL (8-23) 07/03/22 05:21 Creatinine 0.7 mg/dL (0.5-0.9) 07/03/22 05:21 GFR Calculation Not Reportable 07/03/22 05:21 Glucose 84 mg/dL (65-115) 07/03/22 05:21 Calculated Osmolality 294 mOsm/kg (285-295) 07/03/22 05:21 Calcium 8.6 mg/dL (8.5-10.5) 07/03/22 05:21 Total Bilirubin 0.3 mg/dL (0.15-1.2) 07/02/22 12:24 AST 19 U/L (0-32) 07/02/22 12:24 ALT 14 U/L (0-33) 07/02/22 12:24 Alkaline Phosphatase 80 IU/L (35-105) 07/02/22 12:24 Troponin T Baseline 7 ng/L (0-10) 07/02/22 12:24 Troponin T 120 Minute 6.36 ng/L (0-10) 07/02/22 13:50 Delta Troponin T -0.64 ABS# (0-10) L 07/02/22 13:50 Troponin T Hi Sens 6Hr 9.57 ng/L (0-10) 07/02/22 19:16 Troponin T Hi Sens 6Hr Delta 2.57 ng/L (0-12) 07/02/22 19:16 Total Protein 6.9 g/dL (6.6-8.7) 07/02/22 12:24 Albumin 4.3 g/dL (3.5-5.2) 07/02/22 12:24 Globulin 2.6 g/dL (1.3-4.6) 07/02/22 12:24 Lipase 35 U/L (13-60) 07/02/22 12:24 Urine Color Straw (Yellow) 07/02/22 16:20 Urine Appearance Clear (CLEAR) 07/02/22 16:20 Urine pH 8 (5-7) H 07/02/22 16:20 Ur Specific Haskell 1.020 (1.005-1.030) 07/02/22 16:20 Urine Protein Neg (Negative) 07/02/22 16:20 Urine Glucose (UA) Norm (Normal) 07/02/22 16:20 Urine Ketones Negative (Negative) 07/02/22 16:20 Urine Blood Neg (Negative) 07/02/22 16:20 Urine Nitrate Negative (Negative) 07/02/22 16:20 Urine Bilirubin Neg (Negative) 07/02/22 16:20 Urine Urobilinogen Norm mg/dL (Negative) 07/02/22 16:20 Ur Leukocyte Esterase 2+ (Negative) H 07/02/22 16:20 Urine RBC None /hpf (0-2) 07/02/22 16:20 Urine WBC 25-40 /hpf (0-5) H 07/02/22 16:20 Ur Squamous Epith Cells Rare /hpf (0-5) 07/02/22 16:20 Ur Transition Epith Cell 0-4 /hpf 07/02/22 16:20 Amorphous Sediment Not Reportable 07/02/22 16:20 Urine Bacteria Trace /hpf (NONE) 07/02/22 16:20 Urine Mucus 1+ /hpf 07/02/22 16:20 SARS-CoV-2 Ag (Rapid) Negative (Negative) 07/02/22 13:40 Vitals Last Vital Signs Temp 97.8 F 07/03/22 11:12 Pulse 88 07/03/22 11:12 Resp 16 07/03/22 11:12 BP 144/73 07/03/22 11:12 Pulse Ox 93 07/03/22 11:12 O2 Del Method 07/02/22 22:50 Discharge Plan Discharge Patient Disposition: Home Condition: Stable Prescriptions: New metoprolol succinate 25 mg tablet extended release 24 hr 12.5 mg PO DAILY Qty: 90 0RF Continued lisinopril-hydrochlorothiazide 10-12.5 mg tablet 1 tab PO QAM escitalopram oxalate [Lexapro] 10 mg tablet 10 mg PO BEDTIME aspirin [Adult Low Dose Aspirin] 81 mg tablet,delayed release (DR/EC) 81 mg PO QAM Calcium + D 600 mg-5 mcg (200 unit) Tablet 1 tab PO QAM omeprazole 40 mg capsule,delayed release(DR/EC) 40 mg PO BEDTIME Vitamin D3 25 mcg (1,000 unit) Capsule 25 - 125 mcg PO QAM sulfamethoxazole-trimethoprim 800-160 mg tablet 1 tab PO BID PRN (Reason: UTI) Discontinued metoprolol succinate 50 mg tablet extended release 24 hr 50 mg PO QAM atenolol 50 mg tablet 50 mg PO DAILY Discharge Orders: Discharge Order (Routine); Ordered 07/03/22 Ordered By: Carlos Garcia Other Ambulatory Orders: MR head wo con* [id number] (Routine) Timeframe: 3 Days Facility: [facility] - Location: Radiology [facility] Ordered By: Carlos Garcia Referrals: Elvira Urbina MD [Primary Care Provider] - 4-7 days Discharge Diet: Cardiac Discharge Activity: Increase activity as tolerated and As per PT/OT instructions Patient Instructions: Vertigo (GEN) Activity Restrictions/Additional Instructions: Please follow-up with the MRI and follow-up with your primary doctor to discuss the results. If a small stroke is found, consider additional work-up of risk factors to reduce chance of recurrence of a stroke. Monitor your blood pressures twice daily, write down values to help optimize blood pressure control. For now due to noted slow heart rate, episodes of heart rate briefly dropping into the 30s, please decrease your metoprolol dose to 12.5 mg daily. You are given prescription for lower strength metoprolol. As discussed also your urinalysis was mildly abnormal with some white blood cells, although antibiotic was not started due to lack of urinary symptoms. Urine culture is pending, please follow-up with your primary doctor for results. Discharge Attestations Time Spent in Discharge Care*: greater than 30 min Quality Metrics Clinical Quality Measures [ No reported AMI, CVA or VTE this stay] Coding Level of Care Code Acute g FW GA note Diagnoses Vertigo R42 Recurrent UTI N39.0 Bradycardia R00.1
== END 2022-07-03 13:28 | disposition home or self-care (01) ==
LOC: ER 17:24 → MEDSURG 18:07
PROVIDERS: Admitting Provider Internal Medicine; Emergency Provider Emergency Medicine; PCP Family Medicine; Visit Provider Internal Medicine
DX: R42 Dizziness and giddiness (principal); N39.0 Urinary tract infection, site not specified; R00.1 Bradycardia, unspecified; Z79.82 Long term (current) use of aspirin; I10 Essential (primary) hypertension; M81.0 Age-related osteoporosis without current pathological fracture; F32.A Depression, unspecified
CPT/HCPCS: 36415; 70450; 71045; 80048; 80053; 81001; 83690; 84484; 85025; 85610; 85730; 87086; 87426; 93005; 93308; 96372; 97161; 99285; G0378; J1650; J7030

== ENCOUNTER 2022-07-06 13:32 | Outpatient (CLI) | payer MEDICARE, OTHER, SELFPAY ==
--- NOTE | 2022-07-06 14:00 | MR_ITS ---
WS: [id number] MRI BRAIN WITHOUT CONTRAST HISTORY: Possible stroke. Dizziness and weakness. COMPARISON: CT head 07/02/2022 TECHNIQUE: Diffusion imaging, multiplanar T1, T2 and FLAIR imaging obtained. No evidence for acute infarct or hemorrhage. Odom-white matter differentiation is normal. Mild small vessel ischemic disease. No prior infarct. No hemorrhage or mass effect. Ventricles and extra-axial spaces are normal. No inferior displacement of cerebellar tonsils. The sella turcica and pituitary gland are unremarkabl e. Dural venous sinuses and [place] of [place] demonstrate no abnormality on this unenhanced studies. Paranasal sinuses: Clear. Mastoid air cells: Normal. Calvarium and scalp: Intact. MR/MR head wo con* [id number] IMPRESSION: 1. No acute infarct. 2. Minimal small vessel ischemic disease. 3. No hemorrhage or mass effect.
== END 2022-07-06 13:33 | disposition home or self-care (01) ==
LOC: RAD 13:34
PROVIDERS: PCP Family Medicine; Visit Provider Internal Medicine
DX: R42 Dizziness and giddiness (principal); I67.82 Cerebral ischemia
CPT/HCPCS: 70551

== ENCOUNTER → 2022-08-14 13:34 | Outpatient (BNVA) | payer MEDICARE, OTHER, SELFPAY | PROVIDERS: PCP Family Medicine; Referring Provider Dermatology; Visit Provider Podiatrist Foot & Ankle Surgery | DX: S92.912A Unspecified fracture of left toe(s), initial encounter for closed fracture (principal); W23.0XXA Caught, crushed, jammed, or pinched between moving objects, initial encounter | CPT/HCPCS: 73630; 99203 ==

== ENCOUNTER → 2022-09-11 08:56 | Outpatient (BNVA) | payer MEDICARE, OTHER, SELFPAY | PROVIDERS: PCP Family Medicine; Visit Provider Podiatrist Foot & Ankle Surgery | DX: S92.912A Unspecified fracture of left toe(s), initial encounter for closed fracture (principal); W23.0XXA Caught, crushed, jammed, or pinched between moving objects, initial encounter | CPT/HCPCS: 99213 ==

== ENCOUNTER 2022-12-05 09:30 | Outpatient (CLI) | payer MEDICARE, OTHER, SELFPAY ==
--- NOTE | 2022-12-05 09:39 | MM_ITS ---
WS: [id number] Bilateral screening 3D tomosynthesis digital mammogram, 12/05/2022 Clinical Data: SCREENING Comparison: 11/06/2021, 06/21/2020, 03/03/2019, 01/30/2018, 12/06/2016, 12/05/2015, 10/20/2014, 10/13/2013, 09/09/2012, 08/24/2011, 06/16/2010, 02/25/2009, 01/02/2008. Findings: The breast parenchymal pattern shows heterogeneous density. No spiculated masses or clustered calcifi cations are seen. There are no secondary signs of carcinoma. Normal markers on the left breast. MM/[place] [id number] Impression: 1. Negative bilateral mammogram unchanged. 2. Recommend annual screening mammograms. BIRADS: 1-Negative FOLLOW UP: 1 Year Follow-up The CAD linen checker was used.
== END 2022-12-05 09:31 | disposition home or self-care (01) ==
LOC: RAD 09:32
PROVIDERS: PCP Family Medicine; Visit Provider Family Medicine
DX: Z12.31 Encounter for screening mammogram for malignant neoplasm of breast (principal)
CPT/HCPCS: 77063; 77067

== ENCOUNTER → 2023-01-23 09:08 | Outpatient (BNVA) | payer MEDICARE, OTHER, SELFPAY | PROVIDERS: PCP Family Medicine; Visit Provider Podiatrist Foot & Ankle Surgery | DX: M19.172 Post-traumatic osteoarthritis, left ankle and foot (principal); S92.535 Nondisplaced fracture of distal phalanx of left lesser toe(s); X58.XXXS Exposure to other specified factors, sequela | CPT/HCPCS: 73630; 99214 ==

== ENCOUNTER → 2023-02-12 08:00 | Outpatient (BNVA) | payer MEDICARE, OTHER, SELFPAY | PROVIDERS: PCP Family Medicine; Visit Provider Family Medicine | DX: K21.9 Gastro-esophageal reflux disease without esophagitis (principal); M81.0 Age-related osteoporosis without current pathological fracture; I10 Essential (primary) hypertension; I95.9 Hypotension, unspecified; N39.0 Urinary tract infection, site not specified; Z79.899 Other long term (current) drug therapy | CPT/HCPCS: 80053; 80061 ==

== ENCOUNTER 2023-02-21 06:52 | Day surgery (SDC) | payer MEDICARE, OTHER, SELFPAY ==
[2023-02-20 13:00] VITALS: BMI 25.0
[2023-02-21] VITALS (8 sets, daily range): BP systolic 159–184; BP diastolic 70–84; PULSE 51–79; RESP 14–18; TEMP 36.1–36.6; O2SAT 92–99
--- NOTE | 2023-02-21 07:15 | P.ANESASSM_ITS ---
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 Operation Date: 02/21/23 08:20 Proposed Procedures p ?Resection left foot 5th digit intermediate phalanx CPT 41423, M20.42(Left) - Amado Martínez DPM Familial anesthetic complications: None Was Beta Chaya taken within 24 hours: N/A Was Clonidine taken within 24 hours: N/A Last intake: Intake Last Liquid Date 02/20/23 Last Liquid Time 21:00 Last Solid Date 02/20/23 Last Solid Time 18:30 Social No alcohol and No tobacco Exam alert, oriented x 3, clear to auscultation bilaterally and regular rate & rhythm Airway Mallampati: Class I Dentition: full CV/HEM Arrythmia (bradycardia - taken off metoprolol) GI Gastroesophageal Reflux Disease Anesthetic Plan ASA status: 2 Anesthesia: MAC Risk of > 500 ml blood loss (7ml/kg in children): No Medications/Allergies Home Medications Medication Instructions Recorded Confirmed Last Taken Type calcium carbonate 600 mg-vitamin 1 tab PO QAM 07/02/22 02/20/23 02/20/23 History D3 5 mcg (200 unit) tablet cholecalciferol (vitamin D3) 25 25 - 125 mcg PO QAM 07/02/22 02/20/23 02/20/23 History mcg (1,000 unit) capsule (Vitamin D3) sulfamethoxazole 800 1 tab PO BID PRN UTI 07/02/22 02/20/23 12/25/22 History mg-trimethoprim 160 mg tablet escitalopram oxalate 10 mg tablet 10 mg PO BEDTIME #90 tabs 02/12/23 02/20/23 02/19/23 Rx (Lexapro) omeprazole 40 mg capsule,delayed 40 mg PO BEDTIME #90 caps 02/12/23 02/20/23 02/19/23 Rx release Allergies Allergy/AdvReac Type Severity Reaction Status Date / Time tizanidine Allergy Intermediate hard to Verified 02/20/23 12:57 breathe and went to ER [facility] Anesthesia Medical History Essential (primary) hypertension High risk for fracture due to osteoporosis by DEXA scan High risk medication use Osteoporosis Recurrent UTI Originally presented with chronic cystitis. Resolved after prolonged antibiotics. Placed on self treatment for recurrent acute cystitis. Surgical History H/O splenectomy H/O: hysterectomy History of appendectomy Hx of tonsillectomy Previous back surgery Family History Mother , at age 92 Heart attack Father , at age 74 MVA (motor vehicle accident) Other CAD (coronary artery disease) Cancer Hypertension Denies family history of Rheumatoid arthritis Diabetes Lupus Stroke Social History Smoking and tobacco status: never smoked Alcohol intake: current Alcohol intake frequency: holidays/special occasions only Marital status: Current occupational status: retired Data Anesthesia Cardiac Studies: Echocardiogram Limited Views 07/02/22
[2023-02-21] MEDS: acetaminophen 1,000 MG/100 ML PIGGYBACK 400 MG IV (07:33)
[2023-02-21] MEDS: sodium chloride 0.9% 1,000 ML 30 ML IV (07:33)
--- NOTE | 2023-02-21 08:07 | W.PM.OPSUD ---
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
[2023-02-21] MEDS: ceFAZolin 2,000 MG in sodium chloride 0.9% (plus) 50 ML 100 MG IV (08:15)
--- NOTE | 2023-02-21 08:30 | XR_ITS ---
WS: [id number] EXAMINATION: XR toe LT min 2V [id number] REASON FOR EXAM: Resection left foot 5th digit intermediate phalanx COMPARISON: None available. ORDER DATE: 02/21/2023 8:30 AM FINDINGS: Several views demonstrate resection of the intermediate phalanx of the fifth toe IMPRESSION: Postsurgical changes as above.
--- NOTE | 2023-02-21 14:45 | ANE.PACU2 ---
Inpatient post-anesthesia follow up: Airway intact: Yes Vital signs: Temperature 97.8 F Pulse Rate 51 Respiratory Rate 18 Blood Pressure 171/73 Pulse Oximetry 99 Oxygen Delivery Me thod Room Air Oxygen Flow Rate Fraction of Inspir ed Oxygen Hydration adequate: Yes Nausea and vomiting: No Pain level: 1 Mental status: Baseline
--- NOTE | 2023-02-21 19:05 | PM.OP ---
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 Estimated blood loss: Less than 5 cc Complications: None Findings: See above Brief History: Patient is a 77-year-old female that has a history of left foot fifth digit fracture nonunion and persistent pain. The patient has had the aforementioned chief complaint for some time. Conservative treatment measures have been attempted and the patient has opted for surgical intervention at this time. A lengthy discussion regarding the procedure, including risks and complications has been had with the patient and is noted in the recent clinic note. Written and verbal consent have been obtained. All patient questions have been answered to the patient?s satisfaction. No written or verbal guarantees have been given or implied. The patient has been NPO since midnight. The history has been reviewed and the history and physical is current. The signed consent was confirmed and placed in the patient chart. Patient imaging has been reviewed and is consistent with the diagnosis. Under mild sedation, the patient was brought into the operating room and placed on the table in the supine position. IV antibiotics were given by the anesthesia team as preoperative surgical prophylaxis. IV sedation was then performed by the anesthesiateam. A pneumatic tourniquet was then placed about the left ankle. The operative extremity was then prepped and draped in the usual fashion. The extremity was then elevated and exsanguinated before the tourniquet was inflated to 250 mmHg. After inflation, the following procedure was then performed. Procedure: Attention was directed to the left foot where a 2.5 cm incision was made over the distal interphalangeal joint of the fifth digit. Dissection was carried down through subcutaneous superficial fascia to the level of the extensor tendon which was transected transversely. Dissection was carried out to expose the intermediate phalanx which was then resected using sharp dissection with a #15 blade. It was passed from the operative field. Remaining tissues appeared healthy and viable in nature. No remaining intermediate phalanx was visualized. This was confirmed on C-arm fluoroscopy. The incision site was irrigated with copious amounts of sterile saline before attention was directed to closure using 4-0 nylon and simple interrupted fashion. The tourniquet was let down and good hyperemic response was noted all digits of the left foot. The incision was dressed with Xeroform, 4 x 4 gauze, Coban. The patient tolerated the procedure and anesthesia well and without complication. The patient was transported from the operating room to the recovery room with vital signs stable and vascular status intact to all digits of the [ ] foot. The patient was given both written and verbal instructions to remain [ ] to the operative extremity, to keep dressings/splint clean, dry and intact and to take pain medication as directed. The patient will follow-up in the outpatient setting at their scheduled appointment. The patient was discharged with my personal number and was instructed to call if any questions or issues should arise. They were discharged home once anesthesia criteria was met.
== END 2023-02-21 09:53 | disposition home or self-care (01) ==
PROVIDERS: PCP Family Medicine; Visit Provider Podiatrist Foot & Ankle Surgery
PROC: (CPT 28140; principal; 2023-02-21 08:10)
DX: S92.352A Displaced fracture of fifth metatarsal bone, left foot, initial encounter for closed fracture (principal); X58.XXXA Exposure to other specified factors, initial encounter; K21.9 Gastro-esophageal reflux disease without esophagitis; I10 Essential (primary) hypertension
CPT/HCPCS: 28153; 73660; 76000; J0131; J0690; J2704; J3010; J3490; J7030

== ENCOUNTER → 2023-03-06 08:11 | Outpatient (BNVA) | payer MEDICARE, OTHER, SELFPAY | PROVIDERS: PCP Family Medicine; Visit Provider Podiatrist Foot & Ankle Surgery | DX: S92.912 Unspecified fracture of left toe(s) (principal); X58.XXXD Exposure to other specified factors, subsequent encounter | CPT/HCPCS: 73630; 99024 ==

== ENCOUNTER → 2023-04-11 13:09 | Outpatient (BNVA) | payer MEDICARE, OTHER, SELFPAY | PROVIDERS: PCP Family Medicine; Visit Provider Podiatrist Foot & Ankle Surgery | DX: Z98.890 Other specified postprocedural states (principal) | CPT/HCPCS: 99024 ==

== ENCOUNTER → 2023-07-10 13:40 | Outpatient (BNVA) | payer MEDICARE, OTHER, SELFPAY | PROVIDERS: PCP Family Medicine; Visit Provider Podiatrist Foot & Ankle Surgery | DX: Z98.890 Other specified postprocedural states (principal); M79.672 Pain in left foot | CPT/HCPCS: 99213 ==

== ENCOUNTER → 2023-08-19 09:52 | Outpatient (BNVA) | payer MEDICARE, OTHER, SELFPAY | PROVIDERS: PCP Family Medicine; Visit Provider Family Medicine | DX: R25.9 Unspecified abnormal involuntary movements (principal); M81.0 Age-related osteoporosis without current pathological fracture; D64.9 Anemia, unspecified; K21.9 Gastro-esophageal reflux disease without esophagitis; N39.0 Urinary tract infection, site not specified; F41.9 Anxiety disorder, unspecified; R05.9 Cough, unspecified | CPT/HCPCS: 80053; 82306; 82607; 82728; 83735; 84443; 85025 ==

== ENCOUNTER → 2024-01-31 08:32 | Outpatient (BNVA) | payer MEDICARE, OTHER, SELFPAY | PROVIDERS: PCP Family Medicine; Visit Provider Family Medicine Adult Medicine | DX: B34.9 Viral infection, unspecified (principal); J02.9 Acute pharyngitis, unspecified; J06.9 Acute upper respiratory infection, unspecified | CPT/HCPCS: 86710; 87400; 87880 ==

== ENCOUNTER → 2024-04-08 08:13 | Outpatient (BNVA) | payer MEDICARE, SELFPAY | PROVIDERS: PCP Family Medicine; Visit Provider Nurse Practitioner Family | DX: L81.9 Disorder of pigmentation, unspecified (principal); L57.0 Actinic keratosis; L81.4 Other melanin hyperpigmentation; D22.62 Melanocytic nevi of left upper limb, including shoulder; D23.21 Other benign neoplasm of skin of right ear and external auricular canal | CPT/HCPCS: 11102; 17000; 99203 ==

== ENCOUNTER → 2024-04-13 13:54 | Outpatient (BNVA) | payer MEDICARE, SELFPAY | PROVIDERS: PCP Family Medicine; Visit Provider Podiatrist Foot & Ankle Surgery | DX: Z98.890 Other specified postprocedural states; M79.672 Pain in left foot; Q82.8 Other specified congenital malformations of skin | CPT/HCPCS: 99213 ==

== ENCOUNTER 2024-04-28 10:43 | Outpatient (CLI) | payer MEDICARE, SELFPAY ==
--- NOTE | 2024-04-28 11:00 | MR_ITS ---
WS: [id number] MRI LEFT FOOT WITHOUT CONTRAST. COMPARISON: Radiographs 03/06/2023, 01/23/2023 Multiplanar, multisequence imaging is performed without contrast. Surgical resection of middle phalanx of the fifth toe. There is no marrow edema or soft tissue mass. There is some motion artifact obscuring fine detail. There is no displacement of the distal phalanx o f the fifth toe. No fluid collection. No mass. Metatarsals are normally aligned. Metatarsal heads are normal. No soft tissue abnormality. MR/MR foot LT wo con* [id number] IMPRESSION: 1. No acute soft tissue or osseous abnormality associated with the fifth toe. 2. Status post resection of the middle phalanx fourth toe. No postoperative ed matthew.
== END 2024-04-28 10:44 | disposition home or self-care (01) ==
LOC: RAD 10:43
PROVIDERS: PCP Family Medicine; Visit Provider Podiatrist Foot & Ankle Surgery
DX: M79.89 Other specified soft tissue disorders (principal); Z98.890 Other specified postprocedural states
CPT/HCPCS: 73718

== ENCOUNTER → 2024-04-30 13:26 | Outpatient (BNVA) | payer MEDICARE, SELFPAY | PROVIDERS: PCP Family Medicine; Visit Provider Podiatrist Foot & Ankle Surgery | DX: Z98.890 Other specified postprocedural states; Q82.8 Other specified congenital malformations of skin | CPT/HCPCS: 99213 ==

== ENCOUNTER → 2024-05-26 09:26 | Outpatient (BNVA) | payer MEDICARE, SELFPAY | PROVIDERS: PCP Family Medicine; Visit Provider Nurse Practitioner Family | DX: L81.4 Other melanin hyperpigmentation (principal); L70.0 Acne vulgaris; L72.0 Epidermal cyst; D22.62 Melanocytic nevi of left upper limb, including shoulder | CPT/HCPCS: 99213 ==

== ENCOUNTER → 2024-08-25 09:27 | Outpatient (BNVA) | payer MEDICARE, SELFPAY | PROVIDERS: PCP Family Medicine; Visit Provider Nurse Practitioner Family | DX: L81.4 Other melanin hyperpigmentation (principal); L70.0 Acne vulgaris; D22.62 Melanocytic nevi of left upper limb, including shoulder | CPT/HCPCS: 99213 ==

== ENCOUNTER 2024-08-27 07:43 | Outpatient (CLI) | payer MEDICARE, SELFPAY ==
--- NOTE | 2024-08-27 07:51 | MM_ITS ---
WS: [id number] Bilateral screening 3D tomosynthesis digital mammogram, 08/27/2024 8:01 AM Clinical Data: SCREENING Comparison: 12/05/2022, 11/06/2021, 06/21/2020, 03/03/2019, 01/30/2018, 12/06/2016, 12/05/2015, 10/20/2014, 10/13, 09/09/2012, 08/24/2011, 06/16/2010, 02/25/2009, 01/02/2008. Findings: No spiculated masses or clustered calcifications are seen. There are no secondary signs of carcinoma . The breast parenchymal pattern shows heterogeneous density. There is a biopsy clip in the right violette ast. There are mole markers on the left breast. MM/MM scr BI tomosynthesis [id number] Impression: Negative bilateral mammogram unchanged. Recommend annual screening mammograms. BIRADS: 1 - Negative FOLLOW UP: 1 Year Follow-up DENSITY: The breasts are heterogeneously dense, which may obscure small masses. The CAD auto design checker was used
== END 2024-08-27 07:44 | disposition home or self-care (01) ==
LOC: RAD 07:43
PROVIDERS: PCP Family Medicine; Visit Provider Family Medicine
DX: Z12.31 Encounter for screening mammogram for malignant neoplasm of breast (principal); R92.333 Mammographic heterogeneous density, bilateral breasts
CPT/HCPCS: 77063; 77067

== ENCOUNTER → 2024-09-28 09:34 | Outpatient (BNVA) | payer MEDICARE, SELFPAY | PROVIDERS: PCP Family Medicine; Visit Provider Family Medicine | DX: R25.9 Unspecified abnormal involuntary movements (principal); M81.0 Age-related osteoporosis without current pathological fracture; Z00.00 Encounter for general adult medical examination without abnormal findings; Z13.6 Encounter for screening for cardiovascular disorders | CPT/HCPCS: 80053; 80061; 84443; 85025 ==

== ENCOUNTER 2025-01-27 10:35 | Outpatient (CLI) | payer MEDICARE, SELFPAY ==
--- NOTE | 2025-01-27 10:45 | USCV_ITS ---
Margarita Annette Age: 79 Gender: F : 1945 Exam Date: 01/27/2025 10:22 Ordering Phys: Kandice Arreaga MD Technologist: [facility] [place] [facility] [place] tia Risk Factors: Previous Vascular Surgery: Right Brachial BP: / Left Brachial BP: / Right Left Velocity (cm/s) Spectral Plaque Velocity (cm/s) Spectral Plaque Syst/Diast Broadening Syst/Diast Broadening 56.50/ 11.00 Prox CCA 69.80 / 12.80 75.50/ 16.20 Mid CCA 101.80/ 10.60 79.70/ 27.90 Distal CCA 64.90 / 12.10 51.10/ 14.90 Prox ICA 44.10 / 20.80 66.10/ 20.50 Mid ICA 57.10 / 21.80 65.10/ 26.20 Distal ICA 63.60 / 17.90 90.00 ECA 98.00 0.60 ICA/CCA 0.70 Antegrade Vertebral Antegrade 57.50/ 12.00 cm/s 71.80/ 17.60 cm/s Tri Subclavian Bi 151.3 163.0 0 0 CONCLUSIONS Right ICA stenosis <50%. Mild atheromatous plaque right carotid bulb/ICA. Left ICA stenosis <50%. Mild atheromatous plaque left carotid bulb/ICA. Intimal thickening in the common carotid arteries and internal carotid arteries bilaterally. Normal antegrade Doppler flow noted in the right vertebral artery. Normal antegrade Doppler flow noted in the left vertebral artery. Leodan Mejia MD (Electronically Signed) Final Date: 27 January 2025 11:37 S
== END 2025-01-27 10:36 | disposition home or self-care (01) ==
PROVIDERS: PCP Family Medicine; Visit Provider Family Medicine
DX: I65.23 Occlusion and stenosis of bilateral carotid arteries (principal); R93.89 Abnormal findings on diagnostic imaging of other specified body structures
CPT/HCPCS: 93880

== ENCOUNTER → 2025-03-25 14:02 | Outpatient (BNVA) | payer MEDICARE, SELFPAY | PROVIDERS: PCP Family Medicine; Visit Provider Dermatology | DX: L81.4 Other melanin hyperpigmentation (principal); L73.8 Other specified follicular disorders | CPT/HCPCS: 99213 ==

== ENCOUNTER → 2025-07-12 09:45 | Outpatient (BNVA) | payer MEDICARE, SELFPAY | PROVIDERS: PCP Family Medicine; Visit Provider Family Medicine | DX: M81.0 Age-related osteoporosis without current pathological fracture (principal); Z86.73 Personal history of transient ischemic attack (TIA), and cerebral infarction without residual deficits; R53.83 Other fatigue; R25.9 Unspecified abnormal involuntary movements; G45.9 Transient cerebral ischemic attack, unspecified | CPT/HCPCS: 80053; 80061; 82306; 82607; 84443; 85025 ==

== ENCOUNTER 2025-09-30 01:35 | Emergency (ER) | payer MEDICARE, SELFPAY ==
--- OUTSIDE RECORDS SUMMARY | 2025-09-23 07:10 | XMS_ITS | Continuity of Care Document ---
[facility] Address [address] [place] [address] Phone Care Team Providers Care Utility Sales And Service Manager Name Role Phone Demetrius Canales MD Attending Provider Demetrius Canales MD Referring Provider Care Teams Patient Care Team Team Status: Active Member Role/Relationship Status Dates Suman Physician Primary Care Provider Active Visit Care Team Team Status: Inactive Member Role/Relationship Status Dates Demetrius Canales MD Primary Care Provider Active Start: August 09, 2025 End: August 09, 2025 Demetrius Canales MD Attending Provider Active St art: August 09, 2025 End: August 09, 2025 Demetrius Canales MD Referring Provider Active St art: August 09, 2025 End: August 09, 2025 Visit Care Team Team Status: Inactive Member Role/Relationship Status Dates Suman Physician Primary Care Provider Active Start: September 23, 2025 End: September 23, 2025 Demetrius Canales MD Attending Provider Active St art: September 23, 2025 End: September 23, 2025 Chief Complaint and Reason for Visit Chief Complaint Admit Date KVNG CMC OSTEOARTHRITIS August 09 9:50am LT CMC ATRHROPLASTY September 23, 2025 7 :36am Reason for Visit Admit Date 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, left hand August 09, 2025 9:50am Allergies, Adverse Reactions, Alerts Allergen Type Severity Reaction Last Updated Verified Status amoxicillin Allergy Unknown Allergic Reactions Octob er 2024 8:01am Yes Active clavulanic acid Allergy Unknown Allergic Reactions O ctober 2024 8:01am Yes Active tizanidine Allergy Unknown Allergic Reactions Octobe r 2024 8:01am Yes Active Social History Smoking Status Status Start Date End Date Date of Observa tion Unknown if ever smoked Octob er 2024 8:03am Observation Status Observation Response Date of Response Legal Sex Female Sex Assigned At Female 1945 Family History Relationship Condition Age at Onset Recorded Date/T jose juan Not Specified Hypertension Unknown mother Coronary artery disease Unknown Depression Unknown Diverticulitis Unknown Myocardial infarction Unknown Malignant neoplasm Unknown Osteoporosis Unknown Problems Active Problems Problem Diagnosis/Recorded Date Onset Date Stat us 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, left hand August 09, 2025 11:48am Unknown Active History of splenectomy August 09, 2025 11:28am Unk nown Active Bilateral thumb pain August 09, 2025 11:36am Unkno wn Active History of appendectomy August 09, 2025 11:26am Un known Active History of hysterectomy August 09, 2025 11:26am Un known Active History of back surgery August 09, 2025 11:27am Un known Active History of osteoporosis August 09, 2025 11:26am Un known Active History of TIA (transient is chemic attack) August 09, 2025 11:26am Unknown Active Medications Medication Status Dose Units Route Directions Qty Days Refills S tart Date Stop Date End Date Reason(s) Instructions Adherence Omeprazole 40 mg capsule,del ayed release(DR/ EC) Active 40 MG PO DAILY 2024 12:00a m Complies with drug therapy Calcium Carbonate 600 mg calcium (1,500 mg) tablet Active 600 MG PO TWICE A DAY Aug 12:00a m Complies with drug therapy Aspirin 81 mg tablet Active 81 MG PO DAILY 2024 12:00a m Complies with drug therapy Escitalopra m Oxalate 20 mg tablet Active 20 MG PO DAILY 2024 12:00a m Complies with drug therapy Rosuvastati n 20 mg tablet Active 20 MG PO DAILY 2024 12:00a m Complies with drug therapy Cholecalcif vivi (Vitamin D3) 325 mcg (13,000 unit) capsule Active 25 MCG PO DAILY 2024 12:00a m Complies with drug therapy Hydrocodone -Acetaminop hen 5-325 mg Tablet Active 1 - 2 TAB PO EVERY 6 HOURS as needed for Pain 30 0 Octobe r 2024 Unknown Ondansetron 4 mg tablet,disi ntegrating Active 4 MG PO EVERY 8 HOURS as needed for nausea and vomiting 14 4 0 Octobe r 2024 12:00a m Octob er 2024 12:00 am Unknown Procedures Procedure Date Performed Status Finger Fingers Lt August 09, 2025 11:36am co mpleted Finger Fingers Rt August 09, 2025 11:36am co mpleted CMC arthroplasty (Left) September 23, 2025 10:40 am completed Vital Signs Vital Reading Result Reference Range Collection Date/Time Weight 140.00 [lb_av] August 11:19am BMI (Body Mass Index) 23.3 kg/m2 2024 11:19am Height 65 [in_i] September 23, 025 8:11am Weight 145.60 [lb_av] September 23, 2025 8:11am Body Temperature 98.3 [degF] 97.6-99.6 September 11:50am Heart Rate 68 /min 60-90 September 23 025 11:50am Respiratory rate 17 /min 12-September 11:50am Oxygen saturation by Pulse oximetry 99 % 95-100 September 23, 2025 1 1:50am BP Systolic 169 mm[Hg] September 23 025 11:50am BP Diastolic 81 mm[Hg] September 23 025 11:50am BMI (Body Mass Index) 24.2 kg/m2 Octobe r 2024 8:11am Insurance Providers Guarantor SE[employer] GUTIERRES Address [address] [place] [id number] Contact Info. Home Phone: Coverage Status Update:2025 Payer Group Member ID Coverage Type Subscriber Relationship to Subscriber Effective Date Expiration Date [employer] Medicare Managed Care [address] [address] [facility] [address] Work Phone: Id: [id number] null SEB GUTIERRES Id: [id number] 9 [facility] [address] Home Phone: Email: [id number] Self Encounters Encounter Location(s) Arrival/Admit Date Discharge/Departure Date Discharge/Departure Disposition Provider(s) Departed Physician/ Provider Office Visit -[facility] August 09, 2025 9:50am August 09, 2025 11:51am Discharged to home care or self care (routine discharge) Demetrius Canales Dep[facility]ed [facility] September 23, 2025 7:36am September 23, 2025 11:58am Discharged to home care or self care (routine discharge) Demetrius Canales Recent Diagnosis Onset Date Admit Date 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, left hand Unknown August 09, 2025 9 :50am Assessments Diagnosis Onset Date Resolution Status Admit Date Unilateral primary osteoarthritis of first carpometacarpal joint, left hand noneactive August 09, 025 9:50am Plan of Treatment Future Tests Future scheduled test information is unavailable Pending Tests Pending diagnostic test information is unavailable Future Visits Future appointment information is unavailable Future Procedures Future procedure information is unavailable Future Medications Future medication information is unavailable Patient Instructions Patient instructions are unavailable Hospital Discharge Instructions Additional Instructions Wound Care Instructions:: Keep dressing clean and dry. Do not remove unless
[2025-09-30 01:38] VITALS: BP 208/93; PULSE 59; RESP 20; TEMP 36.6; O2SAT 99; BMI 24.1
--- NOTE | 2025-09-30 01:51 | ECG_ITS ---
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 Measurements Intervals [place] Rate: 55 P: 78 MN: 201 QRS: 72 QRSD: 84 T: 47 QT: 430 QTc: 413 Interpretive Statements SINUS BRADYCARDIA MILD ST DEPRESSION Compared to ECG 07/02/2022 14:06:41 No significant changes Electronically Signed On 10-02-2025 20:37:36 CDT by Deejay Kingsley M.D. [email or web address]
--- NOTE | 2025-09-30 01:51 | XRR_ITS ---
PROCEDURE INFORMATION: Exam: XR Chest Exam date and time: 09/30/2025 2:20 AM Age: 80 years old Clinical indication: Pain; Angina pectoris; Prior surgery; Surgery date: 6+ months; Surgery type: T spine surgery; Additional info: Cp TECHNIQUE: Imaging protocol: Radiologic exam of the chest. Views: 1 view. COMPARISON: CR XR chest 1V portable [id number] 07/02/2022 12:13 PM FINDINGS: Lungs: Minimal patchy left basilar airspace opacities favor atelectasis. Airspace disease is not excluded. Otherwise, no confluent consolidation. Pleural spaces: Unremarkable. No pleural effusion. No pneumothorax. Heart/Mediastinum: Unremarkable. No cardiomegaly. Vasculature: Atherosclerotic changes of the aorta are noted. Bones/joints: Stable T8 vertebroplasty changes. XR/XR chest 1V portable [id number] IMPRESSION: Minimal patchy left basilar airspace opacities favor atelectasis. Airspace disease is not excluded. Otherwise, no confluent consolidation.
--- OUTSIDE RECORDS SUMMARY | 2025-09-30 01:56 | XMS_ITS | Encounter Summary ---
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
--- OUTSIDE RECORDS SUMMARY | 2025-09-30 01:56 | XMS_ITS | Encounter Summary ---
Author Organization [facility] Address [address] [place] [address] Care Team Providers Care Psych Assistant Name Role Phone Unavailable Primary Care Provider Unavailabl e Encounter Details Date Type Department Care Team (Latest Contact Info) Description 08/15/2001 Outpatient Historical [facility] Arsenio Cutler MD [address] [place] [address] Hemangioma of other sites (Primary Dx); Thoracic or lumbosacral neuritis or radiculitis, unspecified; Thoracic spondylosis; Backache, unspecified Social History Tobacco Use Types Packs/Day Years Used Date Smoking Tobacco: Never Assessed Comments Unknown Sex and Gender Information Value Date Recorded Sex Assigned at Not on file Legal Sex Female 4:22 AM THERAPIST Gender Identity Not on file Sexual Orientation Not on file documented as of this encounter Plan of Treatment Not on file documented as of this encounter Visit Diagnoses Diagnosis Hemangioma of other sites- Primary Thoracic or lumbosacral neuritis or radiculitis, unspecified Thoracic spondylosis Thoracic spondylosis without myelopathy Backache, unspecified documented in this encounter
--- OUTSIDE RECORDS SUMMARY | 2025-09-30 01:56 | XMS_ITS | Encounter Summary ---
Author Organization [facility] Address [address] [facility] Attn: Epic Prelude [place] [address] Care Team Providers Care Medicine Aide Name Role Phone Unavailable Primary Care Provider Unavailabl e Encounter Details Date Type Department Care Team (Late st Contact Info) Description 08/29/2001 Outpatient Historical Jonathan Crowley MD NO ADDRESS ON FILE Social History Tobacco Use Types Packs/Day Years Used Date Smoking Tobacco: Never Assessed Comments Unknown Sex and Gender Information Value Date Recorded Sex Assigned at Not on file Legal Sex Female 4:22 AM MANAGER LATIN Gender Identity Not on file Sexual Orientation Not on file documented as of this encounter Plan of Treatment Not on file documented as of this encounter Visit Diagnoses Not on filedocumented in this encounter
--- OUTSIDE RECORDS SUMMARY | 2025-09-30 01:56 | XMS_ITS | Encounter Summary ---
Author Organization [facility] Address [address] [facility] Attn: [place] [address] Care Team Providers Care Journeyman Lineman Name Role Phone Unavailable Primary Care Provider Unavailabl e Encounter Details Date Type Department Care Team (Late st Contact Info) Description 09/11/2001 Outpatient Historical Arsenio Cutler MD [address] [place] [address] Social History Tobacco Use Types Packs/Day Years Used Date Smoking Tobacco: Never Assessed Comments Unknown Sex and Gender Information Value Date Recorded Sex Assigned at Not on file Legal Sex Female 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
--- OUTSIDE RECORDS SUMMARY | 2025-09-30 01:56 | XMS_ITS | Encounter Summary ---
Author Organization [facility] Address [address] [place] [address] Care Team Providers Care Cmm Technician Name Role Phone Unavailable Primary Care Provider Unavailabl e Encounter Details Date Type Department Care Team (Latest Contact Info) Description 03/17/2003 Outpatient Historical [facility] Poppy, Dexter Nguyen MD [address] [id number] LUMP OR MASS IN BREAST (Primary Dx) Social History Tobacco Use Types Packs/Day Years Used Date Smoking Tobacco: Never Assessed Comments Unknown Sex and Gender Information Value Date Recorded Sex Assigned at Not on file Legal Sex Female 4:22 AM TRANSFORMATION LEAD Gender Identity Not on file Sexual Orientation Not on file documented as of this encounter Plan of Treatment Not on file documented as of this encounter Visit Diagnoses Diagnosis Lump or mass in breast- Primary documented in this encounter
--- OUTSIDE RECORDS SUMMARY | 2025-09-30 01:56 | XMS_ITS | Clinical Summary ---
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
--- OUTSIDE RECORDS SUMMARY | 2025-09-30 01:56 | XMS_ITS | Encounter Summary ---
Author Organization [facility] Address [address] [place] [address] Care Team Providers Care Generating Station Mechanic Name Role Phone Unavailable Primary Care Provider Unavailabl e Encounter Details Date Type Department Care Team (Latest Contact Info) Description 08/29/2001 Outpatient Historical [facility] Arsenio Cutler MD [address] [place] [address] Thoracic or lumbosacral neuritis or radiculitis, unspecified (Primary Dx); Thoracic spondylosis; Hemangioma of other sites; Backache, unspecified Social History Tobacco Use Types Packs/Day Years Used Date Smoking Tobacco: Never Assessed Comments Unknown Sex and Gender Information Value Date Recorded Sex Assigned at Not on file Legal Sex Female 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
--- OUTSIDE RECORDS SUMMARY | 2025-09-30 01:56 | XMS_ITS | Encounter Summary ---
Author Organization [facility] Address [address] [place] [address] Care Team Providers Care Barrel Polisher Name Role Phone Unavailable Primary Care Provider Unavailabl e Encounter Details Date Type Department Care Team (Latest Contact Info) Description 08/29/2001 Outpatient Historical [facility] [address] 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
--- OUTSIDE RECORDS SUMMARY | 2025-09-30 01:56 | XMS_ITS | Encounter Summary ---
Author Organization [facility] Address [address] [place] [address] Care Team Providers Care Nursing Aide Name Role Phone Unavailable Primary Care Provider Unavailabl e Encounter Details Date Type Department Care Team (Latest Contact Info) Description 08/19/2001 [facility] [address] [place] [id number] Jonathan Crowley MD NO ADDRESS ON FILE Thoracic or lumbosacral neuritis or radiculitis, unspecified (Primary Dx) Social History Tobacco Use Types Packs/Day Years Used Date Smoking Tobacco: Never Assessed Comments Unknown Sex and Gender Information Value Date Recorded Sex Assigned at Not on file Legal Sex Female 4:22 AM [employer]ED [employer] Gender Identity Not on file Sexual Orientation Not on file documented as of this encounter Plan of Treatment Not on file documented as of this encounter Visit Diagnoses Diagnosis Thoracic or lumbosacral neuritis or radiculitis, unspecified- Primary documented in this encounter
[2025-09-30] MEDS: ondansetron 2 mg/ML SDV 2 mL 4 MG IVP (02:07)
[2025-09-30] MEDS: alum-mag-hydroxide-sime 30 mL UDC PO (02:07)
[2025-09-30 02:25] LABS: Hematocrit 38.7 % (36-47); Hemoglobin 12.80 g/dL (11.27-16.99); Mean Corpuscular HGB Conc 33.1 g/dL (30-55); Mean Corpuscular Hemoglobin 31.9 pg (27-33); Mean Corpuscular Volume 96.5 fl (85-98); Nucleated Red Blood Cells % 0 %; Platelet Count 342 10^3/cmm (157-399); Red Blood Count 4.01 10^6/uL (3.85-5.65); White Blood Count 7.71 10^3/uL (3.29-11.43)
[2025-09-30 02:46] LABS: Troponin(5th) Baseline 10 ng/L (0-10)
[2025-09-30 02:56] VITALS: BP 173/78; PULSE 50; RESP 18; O2SAT 98
[2025-09-30 02:56] LABS: Alanine Aminotransferase 11 U/L (0-33); Albumin Level 4.2 g/dL (3.5-5.2); Alkaline Phosphatase 109 U/L (35-105); Anion Gap 17.2 (5-19); Aspartate Amino Transferase 17 U/L (0-32); Blood Urea Nitrogen 19 mg/dL (8-23); Calcium 9.7 mg/dL (8.5-10.5); Carbon Dioxide 24 mmol/L (22-29); Chloride 102 mmol/L (98-107); Creatinine Clr Calc Pharmacy 55.3610; Globulin 2.4 g/dL (1.3-4.6); Glucose 97 mg/dL (65-115); Lipase 40 U/L (13-60); NT Pro B Type Natriuretic Pept 308 pg/mL (0-450); Osmolality Calculated 290 mOsm/kg (285-295); Potassium 4.2 mmol/L (3.5-5.1); Sodium 139 mmol/L (136-145); Total Protein 6.6 g/dL (6.6-8.7)
--- NOTE | 2025-09-30 04:25 | PC.NURSE ---
PT DECLINING VITAL MONITORING AT THIS TIME, PT ENDORSES UNDERSTANDING OF RISKS ASSOCIATED WITHOUT MONITORING
[2025-09-30 04:43] LABS: Troponin 5 2HR 9.90 ng/L (0-10)
[2025-09-30 04:44] LABS: Troponin 5 2HR Delta -0.10 ABS# (0-10)
--- NOTE | 2025-09-30 05:25 | W.ED.CHESTPA ---
HPI - Chest Pain General: Chief Complaint: Chest Pain Stated Complaint: CP Time Seen by Provider: 09/30/25 01:38 History of Present Illness: Patient is a 80-year-old female with past medical history of hypertension, HLD, GERD, hypothyroidism who presents to the ED with abrupt burning chest pain that occurred about 30 minutes after going to sleep tonight. Some indigestion and nausea with this but no vomiting, no shortness of breath, no syncope. The chest pain was not seemingly exertional, not associated with diaphoresis. She has had episodes of reflux before and stated this was similar but more severe. No recent flulike symptoms, fevers, no urinary symptoms. Associated symptoms: Reports abdominal pain Related Data Home Medications ?Medication ?Instructions ?Recorded ?Confirmed calcium 600 mg (as 1 tab PO QAM 07/02/22 10/05/25 carbonate)-vitamin D3 5 mcg (200 unit) tablet cholecalciferol (vitamin D3) 25 25 - 125 mcg PO QAM 07/02/22 10/05/25 mcg (1,000 unit) capsule (Vitamin D3) aspirin 81 mg tablet,delayed 81 mg PO DAILY 01/12/25 10/05/25 release acetaminophen 650 mg 650 mg PO ONCE 07/12/25 10/05/25 tablet,extended release (Arthritis Pain Relief (acetaminophen) ER) Previous Rx's ?Medication ?Instructions ?Recorded omeprazole 40 mg capsule,delayed 40 mg PO BEDTIME #90 caps 11/17/24 release Held on 10/05/25. Instructions: Doctor's Order escitalopram oxalate 20 mg tablet See Rx Instructions .Route 02/09/25 .COMPLEX #90 tabs rosuvastatin 20 mg tablet See Rx Instructions .Route 04/21/25 .COMPLEX #90 tabs sulfamethoxazole 800 1 tab PO BID PRN UTI #60 tabs 04/22/25 mg-trimethoprim 160 mg tablet pantoprazole 40 mg tablet,delayed 40 mg PO BID 4 weeks #56 tabs 10/05/25 release Allergies Allergy/AdvReac Type Severity Reaction Status Date / Time tizanidine Allergy Intermediate hard to Verified 10/05/25 09:31 breathe and went to ER amoxicillin (From Augmentin) Allergy ALGY-Rash Verified 10/05/25 09:31 clavulanic acid (From Allergy ALGY-Rash Verified 10/05/25 09:31 Augmentin) Review of Systems General: Reports: 10 or more systems reviewed and unremarkable except in HPI and below Card: Reports: chest pain GI: Reports: abdominal pain PFSH ED PFSH: Medical History (Updated 10/08/25 @ 00:00 by HARRIET Moreland) TMJ (temporomandibular joint disorder) Acute gout Anxiety Chronic GERD Recurrent UTI Originally presented with chronic cystitis. Resolved after prolonged antibiotics. Placed on self treatment for recurrent acute cystitis. 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 History of tonsillectomy History of hysterectomy fibroid History of appendectomy Family History Mother , at age 92 Heart attack Cancer breast Father , at age 74 MVA (motor vehicle accident) Family/Other Cancer colon Other CAD (coronary artery disease) Hypertension Denies family history of Rheumatoid arthritis Diabetes Lupus Stroke Social History Smoking and tobacco/nicotine status: never used tobacco/nicotine Alcohol intake: current Alcohol intake frequency: few times a month Alcohol type: wine Substance/Drug Use: never Household members: spouse Marital status: Number of children: 3 Current occupational status: retired 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 Normal sinus rhythm with no murmurs, no leg swelling, 2+ pulses throughout, 2+ cap refill. Breathing comfortably on room air, saturating well. Abdomen with mild diffuse upper tenderness, Beasley sign negative, not peritonitic, increased bowel sounds, no CVA tenderness, no overlying skin changes. GCS 15. Course Vital Signs: Vital signs: Vital Signs Temperature 97.9 F 09/30/25 01:38 Pulse Rate 50 L 09/30/25 02:56 Respiratory Rate 18 09/30/25 02:56 Blood Pressure 173/78 09/30/25 02:56 Pulse Oximetry 98 09/30/25 02:56 Oxygen Delivery Me thod Room Air 09/30/25 02:56 MDM - Chest Pain Medical Decision Making -ddx: GERD, gastritis, PUD, pancreatitis, ACS, dysrhythmia, dehydration, electrolyte abnormality - Patient overall well-appearing, with abrupt onset of chest pain, sounding GI in nature, has had reflux issues in the past, seemingly 30 minutes after went to bed, had spicy chili for dinner which probably accentuated this. She has had no prior cardiac history, has not been having worsening chest pains, not clinically ACS sounding in nature. Had complete symptom relief after GI cocktail. Has a heart score of 3, low risk, acceptable for outpatient further workup. Flat negative troponins, no severe electrolyte abnormality, no signs of systemic inflammation or infection, chest x-ray with no cardiomegaly, pleural effusions, infiltrates, pneumothorax, rib fracture. With patient feeling much improved and a reassuring ED evaluation, she was able to be discharged with advice on meal recommendations for her GERD, to continue taking her PPI daily and to follow-up with her PCP in a week's time for reevaluation, discharged in stable condition with at bedside. Lab Data 09/30/25 02:10 09/30/25 02:10 Radiology Impressions Chest X-Ray 09/30/25 01:51 IMPRESSION: Minimal patchy left basilar airspace opacities favor atelectasis. Airspace disease is not excluded. Otherwise, no confluent consolidation. Laboratory Results WBC 7.71 10^3/uL (3.29-11.43) 09/30/25 02:10 RBC 4.01 10^6/uL (3.85-5.65) 09/30/25 02:10 Hgb 12.80 g/dL (11.27-16.99) 09/30/25 02:10 Hct 38.7 % (36-47) 09/30/25 02:10 MCV 96.5 fl (85-98) 09/30/25 02:10 MCH 31.9 pg (27-33) 09/30/25 02:10 MCHC 33.1 g/dL (30-55) 09/30/25 02:10 RDW 15.0 % (12.1-15.1) 09/30/25 02:10 Plt Count 342 10^3/cmm (157-399) 09/30/25 02:10 MPV 10.8 fL (7.4-10.4) H 09/30/25 02:10 Neut % (Auto) 39.2 % 09/30/25 02:10 Lymph % (Auto) 45.3 % 09/30/25 02:10 [place] % (Auto) 11.8 % 09/30/25 02:10 Eos % (Auto) 2.7 % 09/30/25 02:10 Baso % (Auto) 0.9 % 09/30/25 02:10 Neut # (Auto) 3.02 10^3/uL (1.8-7.7) 09/30/25 02:10 Lymph # (Auto) 3.5 10^3/uL (0.8-4.8) 09/30/25 02:10 [place] # (Auto) 0.9 10^3/uL (0.2-0.9) 09/30/25 02:10 Eos # (Auto) 0.2 10^3/uL (0.0-0.8) 09/30/25 02:10 Baso # (Auto) 0.1 10^3/uL (0.0-0.1) 09/30/25 02:10 Nucleated RBC % (auto) 0 % 09/30/25 02:10 Nucleated RBCs # 0.0 /100WBC 09/30/25 02:10 Sodium 139 mmol/L (136-145) 09/30/25 02:10 Potassium 4.2 mmol/L (3.5-5.1) 09/30/25 02:10 Chloride 102 mmol/L (98-107) 09/30/25 02:10 Carbon Dioxide 24 mmol/L (22-29) 09/30/25 02:10 Anion Gap 17.2 (5-19) 09/30/25 02:10 BUN 19 mg/dL (8-23) 09/30/25 02:10 Creatinine 0.7 mg/dL (0.5-0.9) 09/30/25 02:10 GFR Calculation Not Reportable 09/30/25 02:10 Glucose 97 mg/dL (65-115) 09/30/25 02:10 Calculated Osmolality 290 mOsm/kg (285-295) 09/30/25 02:10 Calcium 9.7 mg/dL (8.5-10.5) 09/30/25 02:10 Total Bilirubin 0.2 mg/dL (0.15-1.2) 09/30/25 02:10 AST 17 U/L (0-32) 09/30/25 02:10 ALT 11 U/L (0-33) 09/30/25 02:10 Alkaline Phosphatase 109 U/L (35-105) H 09/30/25 02:10 Troponin T Baseline 10 ng/L (0-10) 09/30/25 02:10 Troponin T 120 Minute 9.90 ng/L (0-10) 09/30/25 04:14 Delta Troponin T -0.10 ABS# (0-10) L 09/30/25 04:14 NT-Pro-B Natriuret Pep 308 pg/mL (0-450) 09/30/25 02:10 Total Protein 6.6 g/dL (6.6-8.7) 09/30/25 02:10 Albumin 4.2 g/dL (3.5-5.2) 09/30/25 02:10 Globulin 2.4 g/dL (1.3-4.6) 09/30/25 02:10 Lipase 40 U/L (13-60) 09/30/25 02:10 All radiology interpretation(s) finalized by discharge Clincial Decision Support The following clinical decision support tools were used to aid in care of the patient HEART Score -> History: Slightly Suspicous, EKG: Normal, Age: 65 or more yrs, Risk Factors: 1 or 2 Risk Factors, Troponin: Baseline Trop <16 ng/L. Resulting HEART Score: 3. Discharge Plan Discharge Patient Disposition: Home Clinical Impression: Reflux gastritis Condition: Stable Prescriptions: No Action aspirin 81 mg tablet,delayed release (DR/EC) 81 mg PO DAILY acetaminophen [Arthritis Pain Relief (acetam)] 650 mg tablet extended release 650 mg PO ONCE pantoprazole 40 mg tablet,delayed release (DR/EC) 40 mg PO BID 28 Days Qty: 56 0RF omeprazole 40 mg capsule,delayed release(DR/EC) 40 mg PO BEDTIME Qty: 90 3RF escitalopram oxalate 20 mg tablet See Rx Instructions .ROUTE .COMPLEX Qty: 90 3RF Dose Instruction: TAKE 1 TABLET BY MOUTH AT BEDTIME Rx Instructions: TAKE 1 TABLET BY MOUTH AT BEDTIME rosuvastatin 20 mg tablet See Rx Instructions .ROUTE .COMPLEX Qty: 90 3RF Dose Instruction: TAKE 1 TABLET BY MOUTH DAILY Rx Instructions: TAKE 1 TABLET BY MOUTH DAILY sulfamethoxazole-trimethoprim 800-160 mg tablet 1 tab PO BID PRN (Reason: UTI) Qty: 60 0RF calcium carbonate-vitamin D3 600 mg-5 mcg (200 unit) Tablet 1 tab PO QAM cholecalciferol (vitamin D3) [Vitamin D3] 25 mcg (1,000 unit) Capsule 25 - 125 mcg PO QAM Discharge Orders: Discharge ED (Routine); Ordered 09/30/25 Ordered By: Jason Gayle Referrals: Kandice Arreaga MD [Primary Care Provider, Family Practice] Discharge Diet: Advance as tolerated Patient Instructions: Opioid Safety, Pain Management, Patient Portal & John Instructions Activity Restrictions/Additional Instructions: You were seen for your chest pain this evening, you were evaluated with labs, an EKG and chest x-ray that were ultimately reassuring for no acute cardiac or lung issues. Your symptoms were most likely caused by your chili at dinner and then gravity causing worsening of your reflux when you lie down. You improved with a GI cocktail and were deemed stable to be discharged home. Continue to take your omeprazole once daily in the morning to minimize acid suppression. Avoid spicy and hot meals when possible. Follow-up with your PCP in a week's time for further medication management. Return to the ED with worsening chest pain, difficulties breathing, episodes of passing out, inability to eat or drink, any other emergent concerns. 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
== END 2025-09-30 05:38 | disposition home or self-care (01) ==
PROVIDERS: Emergency Provider Student in an Organized Health Care Education/Training Program; PCP Family Medicine
DX: K29.60 Other gastritis without bleeding (principal); Z79.82 Long term (current) use of aspirin; E78.5 Hyperlipidemia, unspecified
CPT/HCPCS: 36415; 71045; 80053; 83690; 83880; 84484; 85025; 93005; 96361; 96374; 96375; 99285; J2405; J3490; J7030; J9999